=== PATIENT | female | born 1945 | race Caucasian/White ===

== ENCOUNTER 2016-08-01 14:13 | Outpatient (CLI) | payer MEDICARE ==
[~2016-08-01] VITALS: Ht 163.8 cm; Wt 137.4 kg
[2016-08-01 14:22] VITALS: BP 138/77
[2016-08-01 14:57] LABS: BILIRUBIN,URINE NEGATIVE (NEGATIVE); KETONES,URINE NEGATIVE (NEGATIVE); LEUKOCYTE ESTERASE ,URINE 1+ (NEGATIVE); NITRITE,URINE NEGATIVE (NEGATIVE); PH,URINE 5 (5-9); PROTEIN,URINE 1+ (NEGATIVE); UROBILINOGEN,URINE NORMAL (NORMAL)
[2016-08-01 15:04] LABS: BASOPHILS % (AUTO) 0 % (0-10); EOSINOPHILS # (AUTO) 0.4 10^3/uL (0.0-0.3); EOSINOPHILS % (AUTO) 4 % (0-10); LYMPHOCYTES # (AUTO) 1.8 X 10^3 (1.0-4.0); LYMPHOCYTES % (AUTO) 20 % (12-44); MEAN CORPUSCULAR HEMOGLOBIN 29 PG (25-34); MEAN CORPUSCULAR HGB CONC 33 G/DL (32-36); MEAN CORPUSCULAR VOLUME 87 FL (80-99); MEAN PLATELET VOLUME 9.9 FL (7.4-10.4); MONOCYTES # (AUTO) 0.7 X 10^3 (0.0-1.0); MONOCYTES % (AUTO) 8 % (0-12); NEUTROPHILS # (AUTO) 6.2 X 10^3 (1.8-7.8); NEUTROPHILS % (AUTO) 68 % (42-75); PLATELET COUNT 259 10^3/uL (130-400); RED BLOOD COUNT 4.79 10^6/uL (4.35-5.85); RED CELL DISTRIBUTION WIDTH 13.4 % (10.0-14.5)
[2016-08-01 15:06] LABS: WBC,URINE RARE /HPF
[2016-08-01 15:21] LABS: ALBUMIN 4.1 G/DL (3.2-4.5); BILIRUBIN,TOTAL 0.7 MG/DL (0.1-1.0); CALCIUM 9.8 MG/DL (8.5-10.1); CREATININE SERUM 1.34 MG/DL (0.60-1.30); POTASSIUM 4.2 MMOL/L (3.6-5.0); TOTAL PROTEIN 6.6 G/DL (6.4-8.2)
[2016-08-02] MEDS ORDERED: BUDE10.2 IH (10:08)
[2016-08-02] MEDS ORDERED: ACET-789 PO (10:08)
[2016-08-02] MEDS ORDERED: DOXE25CA46 PO (10:49)
[2016-08-02] MEDS ORDERED: LEVO137T2 PO (10:49)
[2016-08-02] MEDS ORDERED: HYDR25TA4 PO (10:49)
[2016-08-02] MEDS ORDERED: CYCL5TAB PO (10:49)
[2016-08-02] MEDS ORDERED: LISI10TA2 PO (10:49)
[2016-08-02] MEDS ORDERED: MELO15TA39 PO (10:49)
== END 2016-08-01 15:00 | disposition home or self-care (01) ==
LOC: PREOP 14:13
PROVIDERS: ATTEND Urology
DX: Z01.812 Encounter for preprocedural laboratory examination (principal); Z11.2 Encounter for screening for other bacterial diseases; N13.5 Crossing vessel and stricture of ureter without hydronephrosis
CPT/HCPCS: 36415; 80053; 81000; 85025; 87081

== ENCOUNTER → 2016-08-01 | Outpatient (CLI) | payer MEDICARE ==
[~2016-08-01] MED LIST: ACET-789 PO; BUDE10.2 IH; CATHETER FLUSH 10 ML SYR IV PRN; CYCL5TAB PO; DOXE25CA46 PO; HYDR25TA4 PO; IOHEXOL 350 MG/ML 100 ML (OMNIPAQUE 350) VIAL IV ONE; LEVO137T2 PO; LISI10TA2 PO; MELO15TA39 PO; NS 100 ML (IVPB) BAG IV ONE
--- NOTE | 2016-08-01 13:02 | Diagnostic Imaging Report ---
PROCEDURE: CT abdomen and pelvis with and without contrast. TECHNIQUE: Precontrast acquisitions were acquired through the abdomen and pelvis. Multiple contiguous axial images were obtained through the abdomen and pelvis after the administration of intravenous contrast. INDICATION: Left ureteric obstruction. Left-sided pain. CONTRAST: 100 mL of Omnipaque 350 was administered intravenously. FINDINGS: There is minimal atelectasis in the left lung base. The liver demonstrates slight lobulations in its contour with no focal mass. Consider the possibility of chronic liver disease. Correlate with the patient's history. The spleen is not enlarged. The portal vein is patent. The pancreas and adrenal glands appear unremarkable. The left kidney demonstrates a mass inseparable from the medial margin of the lower pole of the left kidney and inseparable from the renal collecting system resulting in obstruction of the pelviureteric junction and causing moderate hydronephrosis. The mass is 8 x 6.6 x 9.8 cm in size and demonstrates relatively homogeneous enhancement. The mass is centered in the left renal hilum and periaortic region and may have originated from a lymph node in this location representing a lymphoma. There is a discrete adjacent mildly enlarged left periaortic lymph node measuring 1.7 x 2.6 x 2.1 cm in size. There are also minimally enlarged aortocaval lymph nodes measuring up to 1.1 cm in size about the level of the kidneys. No other significant lymphadenopathy is seen. There is fatty stranding in the small bowel mesentery. The left renal artery and left renal vein appear patent despite displacement and encasement by the mass with enhancement of the renal parenchyma seen. There is less prominent enhancement, however, compared to the right kidney and no excretion is seen on the delayed phase of the current exam. The unenhanced exam demonstrates no urinary tract stones. The abdominal aorta is normal in caliber. No significant free fluid or fluid collection in the abdomen or pelvis is seen. Diastasis of the recti is noted. The urinary bladder appears unremarkable. There is suggestion of prior hysterectomy. There is a low-attenuation lesion in the pelvis measuring 2.7 x 2 cm, probably a remnant of the left ovary with no enhancement seen. There is diverticulosis but no diverticulitis. The osseous structures demonstrate advanced degenerative changes in the lumbar spine. IMPRESSION: 1. A 9.8 cm mass centered around the left renal hilum resulting in obstruction of the proximal ureter and moderate left hydronephrosis. This is favored to be an extrinsic mass such as lymphoma rather than transitional cell carcinoma arising from the renal collecting system. This is amenable for CT-guided biopsy. 2. Mildly enlarged left periaortic and aortocaval lymph nodes at the level of the kidneys are seen. 3. Diverticulosis. No diverticulitis. 4. There is a 2.7 cm low-attenuation lesion in the pelvis, likely a remnant of the left ovary. The findings were discussed with Dr. Mendez at the time of dictation. Dictated by: Dictated on workstation # [id number]
== END ==
LOC: RAD 10:50
PROVIDERS: ATTEND Urology
DX: N13.5 Crossing vessel and stricture of ureter without hydronephrosis (principal)
CPT/HCPCS: 74178

== ENCOUNTER 2016-08-08 06:15 | Day surgery (SDC) | payer MEDICARE ==
[2016-08-08] VITALS (13 sets, daily range): BP systolic 119–142; BP diastolic 61–79
[~2016-08-08] VITALS: Ht 163.8 cm; Wt 137.4 kg
[~2016-08-08 06:15] MED LIST changes: -CATHETER FLUSH 10 ML SYR IV PRN; -IOHEXOL 350 MG/ML 100 ML (OMNIPAQUE 350) VIAL IV ONE; -NS 100 ML (IVPB) BAG IV ONE
[2016-08-08] MEDS ORDERED: cefTRIAXone 1 GM (ROCEPHIN) VIAL ONE (06:30)
[2016-08-08] MEDS ORDERED: NS (IVPB) 50 ML ONE (06:30)
[2016-08-08] MEDS ORDERED: FAMOTIDINE 20MG/2ML IV (PEPCID) IV ONE (07:00)
--- NOTE | 2016-08-08 07:00 | Progress Note-Pre Operative ---
Pre-Operative Progress Note H&P Reviewed The H&P was reviewed, patient examined and no changes noted. Date H&P Reviewed: August 08, 2016 Time H&P Reviewed: 06:59 Pre-Operative Diagnosis: Lt perirenal mass with renal obstruction ERIN RODRIGUEZ MD August 08, 2016 7:00 am
--- NOTE | 2016-08-08 07:01 | Progress Note-Post Operative ---
Post-Operative Progess Note Surgeon (s)/After School Program Teacher (s) Surgeon ERIN RODRIGUEZ MD After School Program Teacher: N/A Pre-Operative Diagnosis Lt perirenal mass with renal obstruction Post-Operative Diagnosis SAME Procedure & Operative Findings Date of Procedure 08/08/16 Procedure Preformed/Findings LT RETROGRADE UROGRAM AND LT JJ STENT Anesthesia Type GENERAL Estimated Blood Loss Estimated blood loss (mL): N/A Specimens/Packing Specimens Removed N/A Packing: N/A ERIN RODRIGUEZ MD August 08, 2016 7:01 am
[2016-08-08] MEDS ORDERED: SEVOFLURANE (ULTANE) 15 ML INHAL SOLN ONE (07:03)
[2016-08-08] MEDS ORDERED: proPOfol 200 MG/20 ML (DIPRIVAN) VIAL IV ONE (07:03)
[2016-08-08] MEDS ORDERED: LACTATED RINGERS 1,000 ML IV ONE ×2 (07:03→07:51)
[2016-08-08] MEDS ORDERED: MIDAZOLAM 2 MG/2 ML (VERSED) VIAL ONE (07:03)
[2016-08-08] MEDS ORDERED: LIDOCAINE PF 2% 10 ML (XYLOCAINE) AMP ONE (07:03)
[2016-08-08] MEDS ORDERED: ROCURONIUM 50 MG/5 ML (ZEMURON) VIAL IV ONE (07:03)
[2016-08-08] MEDS ORDERED: DEXAMETHASONE PF 10 MG/ML (DECADRON) VIAL ONE (07:03)
[2016-08-08] MEDS ORDERED: ONDANSETRON 4 MG/2 ML (SDV) Z0FRAN ONE (07:03)
[2016-08-08] MEDS ORDERED: fentaNYL INJECTION 100 MCG/2 ML AMP ONE ×2 (07:03→13:15)
--- NOTE | 2016-08-08 07:03 | Discharge Inst-Urology ---
Discharge Inst-Urology Discharge Medications New, Converted, or Re-newed RX: RX on Chart Patient Instructions/Follow Up Plan Please make appointment to been seen in office in [address] Haq was notified of my consult for percutaneous needle biopsy of the perirenal mass and he will see her today around 10am and schedule the procedure either today or another day Keep her NPO for now Stay of ASA till further orders Increase oral fluids for 48 hours and then as needed. Diet and Activity as tolerated. Further orders per Dr Haq If questions or concerns contact your physician Or seek help at emergency department. ERIN RODRIGUEZ MD August 08, 2016 7:03 am
[2016-08-08] MEDS: LACTATED RINGERS 1,000 ML IV PRN ×2 (07:07→07:55)
[2016-08-08] MEDS ORDERED: cefTRIAXone 1 GM/NS 50 ML IVPB IV ONE ×2 (07:15)
[2016-08-08] MEDS ORDERED: GLYCOPYRROLATE 0.2 MG/ML (ROBINUL) 2 ML VIAL ONE (07:57)
[2016-08-08] MEDS ORDERED: NEOSTIGMINE (BLOXIVERZ ) 1 MG/1ML 10 ML VIAL ONE (07:57)
[2016-08-08] MEDS ORDERED: NEOSPORIN + PAIN RELIEF CREAM 15 GM ONE (07:59)
[2016-08-08] MEDS ORDERED: morphine INJ 10 MG/ML 1ML (SYR OR VIAL) IVP PRN (08:15)
[2016-08-08] MEDS ORDERED: ONDANSETRON 4 MG/2 ML (SDV) Z0FRAN IVP PRN (08:15)
[2016-08-08 09:28] LABS: PROTHROMBIN TIME PATIENT 12.8 SEC (12.2-14.7)
[2016-08-08] MEDS ORDERED: morphine INJ 10 MG/ML 1ML (SYR OR VIAL) IVP ONE ×2 (09:30→09:45)
[2016-08-08] MEDS ORDERED: PHENAZOPYRIDINE 100 MG (PYRIDIUM) TABLET PO NR (10:00)
--- NOTE | 2016-08-08 10:07 | Diagnostic Imaging Report ---
Intraoperative views of the abdomen. INDICATION: Left ureteric obstruction. 20 seconds of fluoroscopy time is provided and 8 cc of Omnipaque 300 was utilized. IMPRESSION: Provided images demonstrate moderate hydronephrosis on the left side with nondilated ureter suggestive of obstruction at the UPJ level. Dictated by: Dictated on workstation # [id number]
[2016-08-08] MEDS ORDERED: LIDOCAINE 1% INJ 20 ML (XYLOCAINE) VIAL ONE (12:38)
[2016-08-08] MEDS ORDERED: HYDROcodone/APAP 5 MG/325 MG (LORTAB) TAB ONE ×2 (14:13→15:29)
[2016-08-08] MEDS: HYDROcodone/APAP 5 MG/325 MG (LORTAB) TAB PO PRN ×2 (14:18→15:30)
[2016-08-08] MEDS ORDERED: LIDOCAINE 1% INJ 20 ML (XYLOCAINE) VIAL INJ ONE (14:30)
--- NOTE | 2016-08-08 14:37 | Pre-Procedure Progress Note ---
Pre-Procedure Progress Note H&P Reviewed The H&P was reviewed, patient examined and no changes noted. Date H&P Reviewed: August 08, 2016 Time H&P Reviewed: 12:00 Pre-Procedure Diagnosis: abdominal mass SHELDON VALENTINO MD August 08, 2016 14:37
--- NOTE | 2016-08-08 16:22 | Diagnostic Imaging Report ---
EXAMINATION: CT-guided biopsy-left perinephric retroperitoneal mass. INDICATION: left perinephric retroperitoneal mass. Current history and physical and other medical records are reviewed prior to the procedure. CONSENT: Informed consent was obtained from the patient. The risks, benefits, potential complications and alternatives were reviewed and all questions answered to the patient's satisfaction. The patient's vital signs, cardiac rhythm, and pulse oximetry were observed throughout the procedure by qualified nursing personnel. Sedation/medications: none. FINDINGS: Large retroperitoneal left perinephric mass. The ureteric stent is placed PROCEDURE: After maximal sterile barrier technique preparation and draping, 1% lidocaine was utilized for local anesthesia. With the patient in right side down position, and via posterior approach, a 17-gauge guide needle is introduced into the left-sided retroperitoneal mass under CT scan guidance. After confirming adequate positioning with saved CT images, multiple 18 gauge core biopsy specimens were obtained. The patient tolerated the procedure well with no immediate complications. IMPRESSION: Successful CT-guided biopsy of left perinephric retroperitoneal mass. Dictated by: Dictated on workstation # [id number]
--- NOTE | 2016-08-09 04:17 | OPERATIVE REPORT ---
DATE OF SERVICE: 08/08/2016 PREOPERATIVE DIAGNOSIS: Left renal obstruction with perirenal mass. POSTOPERATIVE DIAGNOSIS: Left renal obstruction with perirenal mass. OPERATIONS PERFORMED: Cystoscopy, left retrograde urogram and insertion of left double J-stent. SURGEON: Severo Rodriguez MD ANESTHESIA: General. COMPLICATIONS: None. DESCRIPTION OF PROCEDURE: Under satisfactory general anesthesia, the patient in lithotomy position, genitalia were prepped and draped in the usual sterile fashion. Noted a cystocele and poor hygiene of the vaginal area. Cystoscope was introduced under direct vision. The bladder was normal. There was efflux on both sides, most likely from the left side, but not bloody. Using the foroblique lens, I passed a 6-[place] ureteral catheter to the distal ureter. I injected contrast. The ureter was completely normal. There was dilatation of the renal pelvis at the UPJ. There was no filling defect at all. There was poor emptying of the renal pelvis contrast. I took a 6-[place] Citizen 26-cm double J-sent, passed it all the way to the left renal pelvis; however, it was not long enough for the patient because of the cystocele and the kidney being high kidney, so I exchanged it to a 28 cm with no problem. The stent was seen nicely proximally, fluoroscopically and distally endoscopically. The bladder was evacuated and the cystoscope was removed. The patient tolerated the procedure and anesthesia well and was sent to the recovery room in stable condition. PLAN: I have explained to the patient and her at the office and again this morning. I would consult Dr. Haq to obtain CT-guided biopsies of that perirenal mass to know the pathology of it. We will see her once she is fully awake and talk to her about it, either do it today or another day. Job ID: [id number] DocumentID: [id number] Dictated Date: 08/08/2016 08:20:19 Nailing Machine Operator Date: 08/08/2016 18:06:08 Dictated By: SEVERO RODRIGUEZ MD
== END 2016-08-08 17:05 | disposition home or self-care (01) ==
LOC: SDC 06:15
PROVIDERS: ATTEND Urology
DX: N28.89 Other specified disorders of kidney and ureter (principal); N81.10 Cystocele, unspecified; I10 Essential (primary) hypertension; E03.9 Hypothyroidism, unspecified; J45.909 Unspecified asthma, uncomplicated; Z79.899 Other long term (current) drug therapy
CPT/HCPCS: 36415; 77012; 85610; 85730

== ENCOUNTER → 2016-08-22 | Outpatient (CLI) | payer MEDICARE ==
--- NOTE | 2016-08-22 15:29 | Diagnostic Imaging Report ---
EXAMINATION: PET-CT TECHNIQUE: Serum glucose level at the time of the study is: 108 mg/dL. 13.6 mCi of FDG was administered intravenously followed by obtaining PET images with corresponding noncontrast CT scan images. The CT scan was performed for anatomic correlation and attenuation correction and was not performed according to the diagnostic protocol of the areas covered. The scan was performed from the head to mid thighs. INDICATION: Diffuse large cell lymphoma. FINDINGS: There is symmetric FDG uptake seen in the brain. There is intense hypermetabolism seen in the left posterior neck muscles which demonstrate no convincing asymmetry, allowing for some positional tilt which is probably positional. Similar activity is seen also in upper left intercostal muscles and muscles around the left scapula and both triceps muscles likely physiologic or related to muscle spasm. No hypermetabolic lymph node in the neck is seen. No hypermetabolic mass or enlarged lymph nodes in the chest is identified. No hypermetabolic lung mass. IN THE ABDOMEN AND PELVIS: There is an intensely hypermetabolic biopsy-proven lymphoma mass in the retroperitoneum centered in the left perinephric space between the abdominal aorta and to the left kidney with invasion into the renal pelvis and the renal collecting system and the renal parenchyma as well as the left psoas muscle. The abnormal hypermetabolism extends along the left psoas muscle inferiorly to the upper pelvis. There is muscle activity bilaterally in a somewhat symmetric fashion and the gluteal muscles probably physiologic or related to muscle spasm. The mass mentioned above is inseparable from the left periaortic lymph node station with no areas of activity noted. The intensely hypermetabolic mass has maximum SUV value of 40. The spleen demonstrates no increased hypermetabolism. IMPRESSION: 1. Intensely hypermetabolic large left retroperitoneal mass inseparable from the left kidney, the left psoas muscle and the left para-aortic lymph node station compatible with biopsy-proven lymphoma. No definite other areas of involvement seen. 2. Multifocal muscle activity is probably physiologic secondary to muscle movements or contractions. Dictated by: Dictated on workstation # [id number]
== END ==
LOC: RAD 10:37
PROVIDERS: ATTEND Internal Medicine Hematology & Oncology
DX: C83.38 Diffuse large B-cell lymphoma, lymph nodes of multiple sites (principal)
CPT/HCPCS: 99213

== ENCOUNTER 2016-08-24 11:30 | Day surgery (SDC) | payer MEDICARE ==
[~2016-08-24] VITALS: Ht 165.1 cm; Wt 136.1 kg
--- NOTE | 2016-08-24 11:53 | Progress Note-Pre Operative ---
Pre-Operative Progress Note H&P Reviewed The H&P was reviewed, patient examined and no changes noted. Date H&P Reviewed: Aug 24, 2016 Time H&P Reviewed: 11:51 Pre-Operative Diagnosis: diffuse large cell non-hodgkins lymphoma JONATAN ADAMS DO Aug 24, 2016 11:53 am
[2016-08-24] MEDS ORDERED: ceFAZolin 2 GM/NS 50 ML IV ONE (12:00)
[2016-08-24] MEDS ORDERED: LACTATED RINGERS 1,000 ML IV PRN (12:09)
[2016-08-24] MEDS ORDERED: ONDANSETRON 4 MG/2 ML (SDV) Z0FRAN IV ONE (12:15)
[2016-08-24] MEDS ORDERED: FAMOTIDINE 20MG/2ML IV (PEPCID) IV ONE (12:15)
[2016-08-24] MEDS ORDERED: LACTATED RINGERS 1,000 ML IV ONE (12:21)
[2016-08-24] MEDS ORDERED: proPOfol 200 MG/20 ML (DIPRIVAN) VIAL IV ONE ×2 (12:21→13:31)
[2016-08-24] MEDS ORDERED: MIDAZOLAM 2 MG/2 ML (VERSED) VIAL ONE (12:23)
--- NOTE | 2016-08-24 12:25 | Discharge Inst-Simple/Standard ---
Discharge Inst-Standard Patient Instructions/Follow Up Plan of Care/Instructions/FU: See Dr. Rosario in 2 weeks. Apply ice over site for 10 mins on and 10 mins off for the next 24-48 hours. Activity as Tolerated: No Discharge Diet: No Restrictions Other Inst to Patient Follow up Appt: Make appointment for 2 weeks. Instructions: No lifting greater than 10 pounds. No strenuous activity. May shower in 24 hours, no tub bath or soaking. Use incentive spirometer at home as directed. No Smoking Skin/Wound Care: May remove bandages. You need to leave the white strips over incision on they will fall off on their own. Symptoms to Report: Appetite Changes, Extremity Discoloration, Numbness/Tingling, Swelling Increased , Bleeding Excessive, Eyesight Changes, Pain Increased, Urine Color Change, Constipation(Persistent), Fever over 101 degree F, Pain/Pressure in chest, Urinating Difficulty, Cough Up/Vomit Blood, Heart Beat Irreg/Pounding, Pain/ Pressure in jaw, Vaginal Bleeding Increase, Cramps in feet or legs, Lightheadedness, Pain/Pressure in shoulder, Diarrhea(Persistent), Memory Changes Suddenly, Questions/Concerns, Weight gain consecutive days, Dizziness/ Fainting, Nausea/Vomiting, Shortness of Breath, Weight gain over 2 pounds If questions or concerns contact your physician Or seek help at emergency department. DANIEL REDD APRN Aug 24, 2016 12:25
[2016-08-24] MEDS ORDERED: BUPIVACAINE 0.5% 30 ML (SENSORCAINE) VIAL ONE (12:31)
[2016-08-24] MEDS ORDERED: LIDOCAINE 1% INJ 20 ML (XYLOCAINE) VIAL ONE (12:31)
[2016-08-24] MEDS ORDERED: 0.9% SODIUM CHLORIDE PF INJ 20 ML VIAL ONE (12:31)
[2016-08-24] MEDS ORDERED: HEParin (CENTRAL IV FLUSH) 500 UNIT/5 ML SYR ONE (12:31)
[2016-08-24 12:37] VITALS: BP 115/69
[2016-08-24] MEDS ORDERED: ONDANSETRON 4 MG/2 ML (SDV) Z0FRAN IVP PRN (14:00)
[2016-08-24] MEDS ORDERED: morphine INJ 10 MG/ML 1ML (SYR OR VIAL) IVP PRN (14:00)
--- NOTE | 2016-08-24 14:05 | Diagnostic Imaging Report ---
Portable upright radiograph of the chest. INDICATION: Power port placement. FINDINGS: There is a right IJ port placed with the tip at the SVC level. There is no pneumothorax. Minimal atelectasis in the left lung base is seen. The heart size is normal. No effusion seen. IMPRESSION: Right IJ port is placed. Left basilar minimal atelectasis. Dictated by: Dictated on workstation # [id number]
[2016-08-24 14:10] VITALS: BP 115/82
--- NOTE | 2016-08-24 14:15 | Progress Note-Post Operative ---
Post-Operative Progess Note Surgeon (s)/Trekking Guide (s) Surgeon JONATAN ADAMS DO Trekking Guide: na Pre-Operative Diagnosis diffuse large cell non-hodgkins lymphoma Post-Operative Diagnosis same Procedure & Operative Findings Date of Procedure 08/24/16 Procedure Performed/Findings port placement right IJ using u/s guidance Anesthesia Type mac c local Estimated Blood Loss Estimated blood loss (mL): min Specimens/Packing Specimens Removed na JONATAN ADAMS DO Aug 24, 2016 14:15
[2016-08-24 14:40] VITALS: BP 101/60
[2016-08-24] MEDS ORDERED: APAP 300 MG/CODEINE 30 MG (TYLENOL #3) TAB PO ONE (14:45)
[2016-08-24 15:10] VITALS: BP 110/67
[2016-08-24 15:30] VITALS: BP 110/67
--- NOTE | 2016-08-24 19:41 | Diagnostic Imaging Report ---
EXAMINATION: Intraoperative view of the chest. INDICATION: Port placement by Dr. Rosario. FLUOROSCOPY TIME: 37 seconds. IMPRESSION: Image provided demonstrates port with tip at the SVC level. Dictated by: Dictated on workstation # [id number]
--- NOTE | 2016-08-25 08:01 | OPERATIVE REPORT ---
DATE OF SERVICE: 08/24/2016 PREOPERATIVE DIAGNOSIS: Diffuse large cell non-Hodgkin's lymphoma. POSTOPERATIVE DIAGNOSIS: Diffuse large cell non-Hodgkin's lymphoma. PROCEDURE: Port placement, right internal jugular vein using ultrasound guidance. SURGEON: Jonatan Rosario DO ANESTHESIA: MAC with local. ESTIMATED BLOOD LOSS: Minimal. COMPLICATIONS: None. INDICATIONS: The patient is a 70-year-old female with a diffuse large cell non-Hodgkin's lymphoma. The patient to undergo chemotherapy treatment. She was recommended to have port placement. She understands risks and benefits of procedure and wished to proceed with procedure. Consent was signed in the chart. DESCRIPTION OF PROCEDURE: The patient was taken to the operating suite, she was prepped and draped in sterile fashion. Surgical pause was performed. Local anesthetic of 0.5% Marcaine and 1% lidocaine in 50:50 ratio was used to anesthetize the neck. The ultrasound was used to locate the internal jugular vein and was then accessed using a micro access needle. Dark nonpulsatile blood was withdrawn. The syringe was removed and a micro access wire was inserted. Fluoroscopy assured proper placement. The needle was removed. Over the wire, the dilator sheath was then advanced over the wire and the wire was removed. The normal guidewire for the port was then placed through the sheath, and then, fluoroscopy showed proper placement and the wire was secured. Local anesthetic was infiltrated on the right chest and a tracked up to the neck of the insertion point. A 15 blade scalpel was used to make an incision over the chest. Cautery was used to dissect down to the pectoral fascia. Pocket was then created with blunt dissection. At this point, the dilator sheath was then advanced over the wire under fluoroscopy. The wire and dilator were removed. The [place] catheter was inserted through the sheath and then the sheath was removed. The [place] wire was removed, and the catheter was tunneled to the right chest incision. Fluoroscopy was then used to withdraw the catheter to the proper length. At this point, the catheter was then cut to length, attached to the port and secured in the usual fashion. The port was then placed within the pocket and then the port was then accessed without difficulty and then flushed with saline. It was then flushed with heparin. The subcutaneous tissues were then reapproximated using 3-0 Vicryl. Skin was then closed using 4-0 Vicryl. The skin also was then washed and dried. Dermabond was placed over the incisions at the insertion point. Fluoroscopy assured proper placement and nice smooth contour of the catheter. The patient tolerated procedure well without any complications. She was taken to recovery room in stable condition. Chest x-ray pending. Job ID: [id number] DocumentID: [id number] Dictated Date: 08/24/2016 14:24:40 Terrazzo Layer Date: 08/24/2016 20:45:08 Dictated By: JONATAN ROSARIO DO
== END 2016-08-24 15:30 | disposition home or self-care (01) ==
LOC: SDC 11:30
PROVIDERS: ATTEND Surgery
DX: C83.30 Diffuse large B-cell lymphoma, unspecified site (principal); J45.909 Unspecified asthma, uncomplicated; E07.9 Disorder of thyroid, unspecified; E66.01 Morbid (severe) obesity due to excess calories; Z68.42 Body mass index [BMI] 45.0-49.9, adult; Z79.899 Other long term (current) drug therapy
CPT/HCPCS: 71010; 87081

== ENCOUNTER → 2016-08-24 | Outpatient (CLI) | payer MEDICARE ==
--- NOTE | 2016-08-25 19:38 | ECHOCARDIOGRAPHY REPORT ---
DATE OF SERVICE: 08/24/2016 ECHOCARDIOGRAPHY ORDERING PHYSICIAN: Dr. Hopson. PRIMARY PHYSICIAN: Dr. Mcdonald. CLINICAL DIAGNOSIS: B cell lymphoma. MEASUREMENTS: LV diameter diastolic 5.3. IVS thickness, diastolic 1.2. LVPW thickness, diastolic 0.9. Aortic root 3. Left atrium 3.5. DESCRIPTION: This is a technically difficult study and not ideal for wall motion analysis. Global left ventricular systolic function appears well preserved. Left ventricular ejection fraction is approximately 55% to 60%. Aortic, mitral and tricuspid valve leaflets, to the extent visualized, seem to have good leaflet excursion. There appears to be some epicardial fat versus small amount of pericardial fluid, which does not appear to be of hemodynamic significance. Mitral inflow is consistent with grade I diastolic dysfunction of the left ventricle. There is no Doppler evidence of any significant valvular stenosis. There is no evidence of significant mitral regurgitation. Subcostal views are not available. The study is not suitable for evaluation for intracardiac shunt. CONCLUSIONS: 1. Technically difficult study. 2. Normal global left ventricular systolic function with ejection fraction of 55% to 60%. 3. This study does not indicate evidence of significant valvular regurgitation or stenosis. 4. Mild diastolic dysfunction of left ventricle is suggested on this study. Job ID: [id number] DocumentID: [id number] Dictated Date: 08/25/2016 14:00:18 Maintenance Coordinator Date: 08/25/2016 15:17:49 Dictated By: TREVOR ZHAO MD, MA, FACP, FACC,
== END ==
LOC: CARD 10:30
PROVIDERS: ATTEND Internal Medicine Hematology & Oncology
DX: Z01.810 Encounter for preprocedural cardiovascular examination (principal); C83.30 Diffuse large B-cell lymphoma, unspecified site
CPT/HCPCS: 93306

== ENCOUNTER 2016-11-09 09:18 | Outpatient (RCR) | payer MEDICARE ==
[2016-08-22 09:24] LABS: BASOPHILS % (AUTO) 0 % (0-10); EOSINOPHILS # (AUTO) 0.5 10^3/uL (0.0-0.3); EOSINOPHILS % (AUTO) 6 % (0-10); LYMPHOCYTES # (AUTO) 1.5 X 10^3 (1.0-4.0); LYMPHOCYTES % (AUTO) 17 % (12-44); MEAN CORPUSCULAR HEMOGLOBIN 30 PG (25-34); MEAN CORPUSCULAR HGB CONC 33 G/DL (32-36); MEAN CORPUSCULAR VOLUME 89 FL (80-99); MEAN PLATELET VOLUME 9.2 FL (7.4-10.4); MONOCYTES # (AUTO) 0.8 X 10^3 (0.0-1.0); MONOCYTES % (AUTO) 9 % (0-12); NEUTROPHILS # (AUTO) 5.9 X 10^3 (1.8-7.8); NEUTROPHILS % (AUTO) 68 % (42-75); PLATELET COUNT 269 10^3/uL (130-400); RED BLOOD COUNT 4.63 10^6/uL (4.35-5.85); RED CELL DISTRIBUTION WIDTH 13.7 % (10.0-14.5); WHITE BLOOD COUNT 8.7 10^3/uL (4.3-11.0)
[2016-08-22 09:59] LABS: ALBUMIN 3.9 G/DL (3.2-4.5); CALCIUM 10.6 MG/DL (8.5-10.1); CREATININE SERUM 1.21 MG/DL (0.60-1.30); POTASSIUM 4.4 MMOL/L (3.6-5.0); TOTAL PROTEIN 6.5 G/DL (6.4-8.2)
[2016-08-22 11:10] LABS: URIC ACID 9.7 MG/DL (2.6-7.2)
[2016-08-28 09:03] LABS: BASOPHILS % (AUTO) 1 % (0-10); EOSINOPHILS # (AUTO) 0.6 10^3/uL (0.0-0.3); EOSINOPHILS % (AUTO) 7 % (0-10); LYMPHOCYTES # (AUTO) 1.5 X 10^3 (1.0-4.0); LYMPHOCYTES % (AUTO) 20 % (12-44); MEAN CORPUSCULAR HEMOGLOBIN 30 PG (25-34); MEAN CORPUSCULAR HGB CONC 33 G/DL (32-36); MEAN CORPUSCULAR VOLUME 90 FL (80-99); MEAN PLATELET VOLUME 9.4 FL (7.4-10.4); MONOCYTES # (AUTO) 0.7 X 10^3 (0.0-1.0); MONOCYTES % (AUTO) 9 % (0-12); NEUTROPHILS # (AUTO) 4.8 X 10^3 (1.8-7.8); NEUTROPHILS % (AUTO) 63 % (42-75); PLATELET COUNT 230 10^3/uL (130-400); WHITE BLOOD COUNT 7.5 10^3/uL (4.3-11.0)
[2016-08-28 09:40] LABS: CREATININE SERUM 1.11 MG/DL (0.60-1.30); POTASSIUM 4.3 MMOL/L (3.6-5.0); URIC ACID 5.1 MG/DL (2.6-7.2)
[2016-09-27 09:36] LABS: BASOPHILS # (AUTO) 0.1 10^3/uL (0.0-0.1); BASOPHILS % (AUTO) 1 % (0-10); EOSINOPHILS # (AUTO) 0.2 10^3/uL (0.0-0.3); EOSINOPHILS % (AUTO) 3 % (0-10); LYMPHOCYTES # (AUTO) 1.9 X 10^3 (1.0-4.0); LYMPHOCYTES % (AUTO) 28 % (12-44); MEAN CORPUSCULAR HEMOGLOBIN 31 PG (25-34); MEAN CORPUSCULAR HGB CONC 32 G/DL (32-36); MEAN CORPUSCULAR VOLUME 99 FL (80-99); MEAN PLATELET VOLUME 8.9 FL (7.4-10.4); MONOCYTES # (AUTO) 0.9 X 10^3 (0.0-1.0); MONOCYTES % (AUTO) 13 % (0-12); NEUTROPHILS # (AUTO) 3.9 X 10^3 (1.8-7.8); NEUTROPHILS % (AUTO) 55 % (42-75); PLATELET COUNT 378 10^3/uL (130-400); RED BLOOD COUNT 3.47 10^6/uL (4.35-5.85); RED CELL DISTRIBUTION WIDTH 18.9 % (10.0-14.5)
[2016-09-27 10:03] LABS: ALBUMIN 3.9 GM/DL (3.2-4.5); BILIRUBIN,TOTAL 1.1 MG/DL (0.1-1.0); CALCIUM 9.6 MG/DL (8.5-10.1); CREATININE SERUM 1.23 MG/DL (0.60-1.30); MAGNESIUM 1.6 MG/DL (1.8-2.4); POTASSIUM 4.1 MMOL/L (3.6-5.0); TOTAL PROTEIN 6.4 GM/DL (6.4-8.2); URIC ACID 7.9 MG/DL (2.6-7.2)
[2016-10-12 08:42] LABS: BASOPHILS # (AUTO) 0.1 10^3/uL (0.0-0.1); BASOPHILS % (AUTO) 1 % (0-10); EOSINOPHILS # (AUTO) 0.5 10^3/uL (0.0-0.3); EOSINOPHILS % (AUTO) 6 % (0-10); LYMPHOCYTES % (AUTO) 22 % (12-44); MEAN CORPUSCULAR HEMOGLOBIN 32 PG (25-34); MEAN CORPUSCULAR HGB CONC 32 G/DL (32-36); MEAN CORPUSCULAR VOLUME 97 FL (80-99); MEAN PLATELET VOLUME 8.9 FL (7.4-10.4); MONOCYTES % (AUTO) 11 % (0-12); NEUTROPHILS # (AUTO) 5.5 X 10^3 (1.8-7.8); NEUTROPHILS % (AUTO) 60 % (42-75); PLATELET COUNT 252 10^3/uL (130-400); RED BLOOD COUNT 3.65 10^6/uL (4.35-5.85); RED CELL DISTRIBUTION WIDTH 15.1 % (10.0-14.5)
[2016-10-12 09:05] LABS: CALCIUM 8.7 MG/DL (8.5-10.1); CREATININE SERUM 1.06 MG/DL (0.60-1.30); MAGNESIUM 1.2 MG/DL (1.8-2.4); POTASSIUM 3.6 MMOL/L (3.6-5.0); URIC ACID 7.5 MG/DL (2.6-7.2)
[~2016-11-09] VITALS: Ht 160 cm; Wt 132.0 kg
[~2016-11-09 09:18] MED LIST changes: +ACETAMINOPHEN 500 MG TAB (TYLENOL) CANCER CTR PO PRN; +CYCLOPHOSPHAMIDE INJECTION 800 MG in NS (IVPB) CANCER CENTER 250 ML IV SCH; +DOXORUBICIN HCL IV SCH; +FOSAPREPITANT 150 MG/NS 150 MG IVPB (CANCER CTR) IV PRN; +NS IV 1000 ML (CANCER CTR) IV SCH; +NS IV SCH; +PALONOSETRON 0.25 MG, DEXAMETHASONE 10 MG/NS 50 ML IVPB IV PRN; +PEGFILGRASTIM 6 MG/0.6 ML ONPRO KIT SQ SCH; +PEGFILGRASTIM 6 MG/0.6ML NEULASTA SC SCH; +diphenhydrAMINE 50 MG/ML INJ (CANCER CENTER) IV PRN; +riTUXimab 500 MG, riTUXimab FOR IV INJ CONC 300 MG in NS (IVPB) CANCER CENTER 186 ML IV SCH; +vinCRIStine SULFATE 1 MG in NS (IVPB) CANCER CENTER 50 ML IV SCH
[2016-11-09 09:49] LABS: BASOPHILS # (AUTO) 0.1 10^3/uL (0.0-0.1); BASOPHILS % (AUTO) 1 % (0-10); EOSINOPHILS # (AUTO) 0.2 10^3/uL (0.0-0.3); EOSINOPHILS % (AUTO) 3 % (0-10); LYMPHOCYTES % (AUTO) 44 % (12-44); MEAN CORPUSCULAR HEMOGLOBIN 31 PG (25-34); MEAN CORPUSCULAR HGB CONC 32 G/DL (32-36); MEAN CORPUSCULAR VOLUME 98 FL (80-99); MEAN PLATELET VOLUME 8.7 FL (7.4-10.4); MONOCYTES # (AUTO) 0.9 X 10^3 (0.0-1.0); MONOCYTES % (AUTO) 13 % (0-12); NEUTROPHILS # (AUTO) 2.8 X 10^3 (1.8-7.8); NEUTROPHILS % (AUTO) 41 % (42-75); PLATELET COUNT 300 10^3/uL (130-400); RED BLOOD COUNT 3.72 10^6/uL (4.35-5.85); RED CELL DISTRIBUTION WIDTH 14.8 % (10.0-14.5); WHITE BLOOD COUNT 6.9 10^3/uL (4.3-11.0)
[2016-11-09 10:18] LABS: ALBUMIN 3.8 GM/DL (3.2-4.5); BILIRUBIN,TOTAL 0.7 MG/DL (0.1-1.0); CALCIUM 9.3 MG/DL (8.5-10.1); CREATININE SERUM 1.12 MG/DL (0.60-1.30); MAGNESIUM 1.6 MG/DL (1.8-2.4); POTASSIUM 4.2 MMOL/L (3.6-5.0); TOTAL PROTEIN 6.2 GM/DL (6.4-8.2); URIC ACID 8.6 MG/DL (2.6-7.2)
[2016-11-09] MEDS ORDERED: diphenhydrAMINE 25 MG TAB (BENADRYL) CANCER CENTER PO ONE (10:55)
== END 2016-11-16 | disposition home or self-care (01) ==
LOC: ONC 09:18
PROVIDERS: ATTEND Internal Medicine Hematology & Oncology
DX: Z51.11 Encounter for antineoplastic chemotherapy (principal); C83.33 Diffuse large B-cell lymphoma, intra-abdominal lymph nodes; I12.9 Hypertensive chronic kidney disease with stage 1 through stage 4 chronic kidney disease, or unspecified chronic kidney disease; N18.3 Chronic kidney disease, stage 3 (moderate); E03.9 Hypothyroidism, unspecified; J45.909 Unspecified asthma, uncomplicated; E79.0 Hyperuricemia without signs of inflammatory arthritis and tophaceous disease; E83.52 Hypercalcemia; R10.84 Generalized abdominal pain; E66.01 Morbid (severe) obesity due to excess calories; Z68.43 Body mass index [BMI] 50.0-59.9, adult; Z79.899 Other long term (current) drug therapy
CPT/HCPCS: 36415; 36591; 80048; 80053; 80074; 83615; 83735; 84550; 85025; 96367; 96372; 96375; 96411; 96413; 96415; 96417; 99214

== ENCOUNTER → 2016-11-20 | Outpatient (CLI) | payer MEDICARE ==
[~2016-11-20] MED LIST changes: -ACETAMINOPHEN 500 MG TAB (TYLENOL) CANCER CTR PO PRN; +BARIUM SUSPENSION 2.1% (VANILLA SILQ) 450 ML PO ONE; +CATHETER FLUSH 10 ML SYR IV PRN; -CYCLOPHOSPHAMIDE INJECTION 800 MG in NS (IVPB) CANCER CENTER 250 ML IV SCH; -DOXORUBICIN HCL IV SCH; -FOSAPREPITANT 150 MG/NS 150 MG IVPB (CANCER CTR) IV PRN; +IOHEXOL 350 MG/ML 100 ML (OMNIPAQUE 350) VIAL IV ONE; +NS 100 ML (IVPB) BAG IV ONE; -NS IV 1000 ML (CANCER CTR) IV SCH; -NS IV SCH; -PALONOSETRON 0.25 MG, DEXAMETHASONE 10 MG/NS 50 ML IVPB IV PRN; -PEGFILGRASTIM 6 MG/0.6 ML ONPRO KIT SQ SCH; -PEGFILGRASTIM 6 MG/0.6ML NEULASTA SC SCH; -diphenhydrAMINE 50 MG/ML INJ (CANCER CENTER) IV PRN; -riTUXimab 500 MG, riTUXimab FOR IV INJ CONC 300 MG in NS (IVPB) CANCER CENTER 186 ML IV SCH; -vinCRIStine SULFATE 1 MG in NS (IVPB) CANCER CENTER 50 ML IV SCH
--- NOTE | 2016-11-20 14:37 | Diagnostic Imaging Report ---
PROCEDURE: CT chest with contrast, CT abdomen and pelvis with and without contrast. TECHNIQUE: Pre and post intravenous contrast axial imaging of the abdomen and pelvis and post contrast axial imaging of the chest were performed. INDICATION: Diffuse large B-cell lymphoma. COMPARISON: Comparison made with prior examination from 08/01/2016. FINDINGS: There are no discrete pulmonary nodules, masses, or infiltrates. There is no pleural or pericardial fluid. There is no pneumothorax. There is no pathologically enlarged adenopathy in the chest. There are degenerative changes in the spine. The liver is normal in size without focal lesions. Spleen is unremarkable. The pancreas and adrenal glands are unremarkable. The right kidney is normal. There is an ill-defined soft tissue mass again seen in the hilum of the left kidney. On today's exam, this measures 5.3 x 4.4 cm. This compares with a previous measurement of 8 x 6.5 cm. There are a few subcentimeter left para-aortic lymph nodes. The soft tissue thickening about the left renal hilum extends down to the left ureter. The aorta is non-aneurysmal. The bowel gas pattern is nonspecific. There is no free air. There is some mild diverticular disease. There is no pelvic mass or adenopathy. There are degenerative changes in the spine. IMPRESSION: Interval decrease in size of the mass about the left renal hilum. Additionally, the previously described para-aortic adenopathy is now all less than a centimeter. Diverticular disease without evidence of diverticulitis. Degenerative changes in the spine. Dictated by: Dictated on workstation # [id number]
== END ==
LOC: RAD 09:19
PROVIDERS: ATTEND Nurse Practitioner Adult Health
DX: K57.30 Diverticulosis of large intestine without perforation or abscess without bleeding (principal); M47.819 Spondylosis without myelopathy or radiculopathy, site unspecified; C83.33 Diffuse large B-cell lymphoma, intra-abdominal lymph nodes
CPT/HCPCS: 71260; 74178

== ENCOUNTER 2016-12-07 08:43 | Outpatient (RCR) | payer MEDICARE ==
[~2016-12-07] VITALS: Ht 160 cm; Wt 135.2 kg
[~2016-12-07 08:43] MED LIST changes: +ACETAMINOPHEN 500 MG TAB (TYLENOL) CANCER CTR PO PRN; -BARIUM SUSPENSION 2.1% (VANILLA SILQ) 450 ML PO ONE; -CATHETER FLUSH 10 ML SYR IV PRN; +CYCLOPHOSPHAMIDE INJECTION 800 MG in NS (IVPB) CANCER CENTER 250 ML IV SCH; +DOXORUBICIN HCL IV SCH; +FOSAPREPITANT 150 MG/NS 150 MG IVPB (CANCER CTR) IV PRN; -IOHEXOL 350 MG/ML 100 ML (OMNIPAQUE 350) VIAL IV ONE; -NS 100 ML (IVPB) BAG IV ONE; +NS IV 1000 ML (CANCER CTR) 1,000 ML ONE; +NS IV 1000 ML (CANCER CTR) IV SCH; +NS IV SCH; +PALONOSETRON 0.25 MG, DEXAMETHASONE 10 MG/NS 50 ML IVPB IV PRN; +PEGFILGRASTIM 6 MG/0.6 ML ONPRO KIT SQ SCH; +diphenhydrAMINE 50 MG/ML INJ (CANCER CENTER) IV PRN; +riTUXimab 500 MG, riTUXimab FOR IV INJ CONC 300 MG in NS (IVPB) CANCER CENTER 186 ML IV SCH; +vinCRIStine SULFATE 1 MG in NS (IVPB) CANCER CENTER 50 ML IV SCH
[2016-12-07 09:57] LABS: BASOPHILS # (AUTO) 0.1 10^3/uL (0.0-0.1); BASOPHILS % (AUTO) 1 % (0-10); EOSINOPHILS # (AUTO) 0.3 10^3/uL (0.0-0.3); EOSINOPHILS % (AUTO) 4 % (0-10); LYMPHOCYTES # (AUTO) 1.8 X 10^3 (1.0-4.0); LYMPHOCYTES % (AUTO) 26 % (12-44); MEAN CORPUSCULAR HEMOGLOBIN 31 PG (25-34); MEAN CORPUSCULAR HGB CONC 33 G/DL (32-36); MEAN CORPUSCULAR VOLUME 94 FL (80-99); MEAN PLATELET VOLUME 8.9 FL (7.4-10.4); MONOCYTES # (AUTO) 0.9 X 10^3 (0.0-1.0); MONOCYTES % (AUTO) 12 % (0-12); NEUTROPHILS % (AUTO) 57 % (42-75); PLATELET COUNT 336 10^3/uL (130-400); RED BLOOD COUNT 3.92 10^6/uL (4.35-5.85); RED CELL DISTRIBUTION WIDTH 14.7 % (10.0-14.5); WHITE BLOOD COUNT 7.1 10^3/uL (4.3-11.0)
[2016-12-07 10:17] LABS: BILIRUBIN,TOTAL 0.7 MG/DL (0.1-1.0); CALCIUM 9.4 MG/DL (8.5-10.1); CREATININE SERUM 1.11 MG/DL (0.60-1.30); MAGNESIUM 1.6 MG/DL (1.8-2.4); TOTAL PROTEIN 6.4 GM/DL (6.4-8.2); URIC ACID 9.3 MG/DL (2.6-7.2)
[2016-12-07] MEDS ORDERED: diphenhydrAMINE 25 MG TAB (BENADRYL) CANCER CENTER PO ONE (10:36)
[2016-12-07] MEDS ORDERED: NS IV SCH (11:00)
[2016-12-07] MEDS ORDERED: CYCLOPHOSPHAMIDE INJECTION 1,000 MG, CYCLOPHOSPHAMIDE INJECTION 200 MG in NS (IVPB) CAN... IV SCH (11:00)
[2016-12-07] MEDS ORDERED: DOXORUBICIN HCL IV SCH (11:00)
[2016-12-07] MEDS ORDERED: vinCRIStine SULFATE 1 MG in NS (IVPB) CANCER CENTER 50 ML IV SCH (11:15)
[2016-12-07] MEDS ORDERED: riTUXimab 500 MG, riTUXimab FOR IV INJ CONC 300 MG in NS (IVPB) CANCER CENTER 186 ML IV SCH (11:15)
== END 2016-12-23 | disposition home or self-care (01) ==
LOC: ONC 08:43
PROVIDERS: ATTEND Internal Medicine Hematology & Oncology
DX: Z51.11 Encounter for antineoplastic chemotherapy (principal); C83.33 Diffuse large B-cell lymphoma, intra-abdominal lymph nodes; I12.9 Hypertensive chronic kidney disease with stage 1 through stage 4 chronic kidney disease, or unspecified chronic kidney disease; N18.3 Chronic kidney disease, stage 3 (moderate); E03.9 Hypothyroidism, unspecified; J45.909 Unspecified asthma, uncomplicated; E79.0 Hyperuricemia without signs of inflammatory arthritis and tophaceous disease; E83.52 Hypercalcemia; R10.30 Lower abdominal pain, unspecified; E66.01 Morbid (severe) obesity due to excess calories; Z68.43 Body mass index [BMI] 50.0-59.9, adult; Z79.899 Other long term (current) drug therapy
CPT/HCPCS: 36591; 80053; 83615; 83735; 84550; 85025; 96360; 96361; 96367; 96375; 96411; 96413; 96417

== ENCOUNTER 2016-12-28 09:33 | Outpatient (RCR) | payer MEDICARE ==
[~2016-12-28] VITALS: Ht 160 cm; Wt 88.0 kg
[~2016-12-28 09:33] MED LIST changes: +CYCLOPHOSPHAMIDE INJECTION 1,000 MG, CYCLOPHOSPHAMIDE INJECTION 200 MG in NS (IVPB) CAN... IV SCH; -CYCLOPHOSPHAMIDE INJECTION 800 MG in NS (IVPB) CANCER CENTER 250 ML IV SCH; -NS IV 1000 ML (CANCER CTR) 1,000 ML ONE
[2016-12-28 10:25] LABS: BASOPHILS # (AUTO) 0.1 10^3/uL (0.0-0.1); BASOPHILS % (AUTO) 1 % (0-10); EOSINOPHILS % (AUTO) 0 % (0-10); LYMPHOCYTES # (AUTO) 1.6 X 10^3 (1.0-4.0); LYMPHOCYTES % (AUTO) 22 % (12-44); MEAN CORPUSCULAR HEMOGLOBIN 30 PG (25-34); MEAN CORPUSCULAR HGB CONC 32 G/DL (32-36); MEAN CORPUSCULAR VOLUME 93 FL (80-99); MEAN PLATELET VOLUME 8.7 FL (7.4-10.4); MONOCYTES # (AUTO) 0.8 X 10^3 (0.0-1.0); MONOCYTES % (AUTO) 11 % (0-12); NEUTROPHILS % (AUTO) 66 % (42-75); PLATELET COUNT 339 10^3/uL (130-400); RED BLOOD COUNT 3.95 10^6/uL (4.35-5.85); RED CELL DISTRIBUTION WIDTH 15.1 % (10.0-14.5); WHITE BLOOD COUNT 7.5 10^3/uL (4.3-11.0)
[2016-12-28 10:44] LABS: BILIRUBIN,TOTAL 0.7 MG/DL (0.1-1.0); CALCIUM 9.8 MG/DL (8.5-10.1); CREATININE SERUM 1.01 MG/DL (0.60-1.30); MAGNESIUM 1.5 MG/DL (1.8-2.4); POTASSIUM 3.9 MMOL/L (3.6-5.0); TOTAL PROTEIN 6.6 GM/DL (6.4-8.2); URIC ACID 5.9 MG/DL (2.6-7.2)
[2016-12-28] MEDS ORDERED: diphenhydrAMINE 25 MG TAB (BENADRYL) CANCER CENTER PO ONE (11:06)
== END 2017-01-17 13:27 | disposition home or self-care (01) ==
LOC: ONC 09:33
PROVIDERS: ATTEND Internal Medicine Hematology & Oncology
DX: Z51.11 Encounter for antineoplastic chemotherapy (principal); C83.33 Diffuse large B-cell lymphoma, intra-abdominal lymph nodes; I12.9 Hypertensive chronic kidney disease with stage 1 through stage 4 chronic kidney disease, or unspecified chronic kidney disease; N18.3 Chronic kidney disease, stage 3 (moderate); E03.9 Hypothyroidism, unspecified; J45.909 Unspecified asthma, uncomplicated; E79.0 Hyperuricemia without signs of inflammatory arthritis and tophaceous disease; E83.52 Hypercalcemia; E66.01 Morbid (severe) obesity due to excess calories; Z68.43 Body mass index [BMI] 50.0-59.9, adult; Z79.899 Other long term (current) drug therapy
CPT/HCPCS: 36591; 80053; 83615; 83735; 84550; 85025; 96367; 96375; 96411; 96413; 96417

== ENCOUNTER 2017-03-01 10:32 | Outpatient (RCR) | payer MEDICARE ==
[2017-01-19 12:54] LABS: BASOPHILS % (AUTO) 0 % (0-10); EOSINOPHILS % (AUTO) 0 % (0-10); HEMATOCRIT 33 % (35-52); HEMOGLOBIN 10.5 G/DL (11.5-16.0); LYMPHOCYTES # (AUTO) 1.2 X 10^3 (1.0-4.0); LYMPHOCYTES % (AUTO) 12 % (12-44); MEAN CORPUSCULAR HEMOGLOBIN 30 PG (25-34); MEAN CORPUSCULAR HGB CONC 32 G/DL (32-36); MEAN CORPUSCULAR VOLUME 94 FL (80-99); MEAN PLATELET VOLUME 8.6 FL (7.4-10.4); MONOCYTES # (AUTO) 1.1 X 10^3 (0.0-1.0); MONOCYTES % (AUTO) 11 % (0-12); NEUTROPHILS # (AUTO) 7.5 X 10^3 (1.8-7.8); NEUTROPHILS % (AUTO) 76 % (42-75); PLATELET COUNT 359 10^3/uL (130-400); RED BLOOD COUNT 3.46 10^6/uL (4.35-5.85); RED CELL DISTRIBUTION WIDTH 17.2 % (10.0-14.5); WHITE BLOOD COUNT 9.9 10^3/uL (4.3-11.0)
[2017-01-19 13:16] LABS: ALBUMIN 3.8 GM/DL (3.2-4.5); BILIRUBIN,TOTAL 0.6 MG/DL (0.1-1.0); CALCIUM 9.2 MG/DL (8.5-10.1); CREATININE SERUM 1.02 MG/DL (0.60-1.30); MAGNESIUM 2.7 MG/DL (1.8-2.4); POTASSIUM 3.5 MMOL/L (3.6-5.0); TOTAL PROTEIN 6.3 GM/DL (6.4-8.2); URIC ACID 6.4 MG/DL (2.6-7.2)
[2017-02-09 10:05] LABS: BASOPHILS % (AUTO) 0 % (0-10); EOSINOPHILS % (AUTO) 0 % (0-10); HEMATOCRIT 30 % (35-52); HEMOGLOBIN 9.7 G/DL (11.5-16.0); LYMPHOCYTES # (AUTO) 1.1 X 10^3 (1.0-4.0); LYMPHOCYTES % (AUTO) 13 % (12-44); MEAN CORPUSCULAR HEMOGLOBIN 30 PG (25-34); MEAN CORPUSCULAR HGB CONC 32 G/DL (32-36); MEAN CORPUSCULAR VOLUME 94 FL (80-99); MEAN PLATELET VOLUME 8.6 FL (7.4-10.4); MONOCYTES # (AUTO) 0.9 X 10^3 (0.0-1.0); MONOCYTES % (AUTO) 11 % (0-12); NEUTROPHILS # (AUTO) 6.3 X 10^3 (1.8-7.8); NEUTROPHILS % (AUTO) 75 % (42-75); PLATELET COUNT 392 10^3/uL (130-400); RED BLOOD COUNT 3.24 10^6/uL (4.35-5.85); RED CELL DISTRIBUTION WIDTH 17.2 % (10.0-14.5); WHITE BLOOD COUNT 8.4 10^3/uL (4.3-11.0)
[2017-02-09 10:21] LABS: ALBUMIN 3.7 GM/DL (3.2-4.5); CALCIUM 9.4 MG/DL (8.5-10.1); CREATININE SERUM 1.1 MG/DL (0.60-1.30); POTASSIUM 3.5 MMOL/L (3.6-5.0); TOTAL PROTEIN 6.6 GM/DL (6.4-8.2)
[2017-02-09 11:36] LABS: CLARITY,URINE SLIGHTLY CLOUDY; COLOR,URINE AMBER; GLUCOSE, URINE (UA) NEGATIVE (NEGATIVE); KETONES,URINE 1+ (NEGATIVE); LEUKOCYTE ESTERASE ,URINE 2+ (NEGATIVE); NITRITE,URINE NEGATIVE (NEGATIVE); PH,URINE 5 (5-9); PROTEIN,URINE 3+ (NEGATIVE); UROBILINOGEN,URINE 4 MG/DL (NORMAL)
[2017-02-09 11:50] LABS: BACTERIA,URINE FEW /HPF; BILIRUBIN,URINE 2+ (NEGATIVE); SQUAMOUS EPITHELIAL CELL,UR >50 /HPF
[~2017-03-01] VITALS: Ht 160 cm; Wt 133.4 kg
[~2017-03-01 10:32] MED LIST changes: +diphenhydrAMINE 25 MG TAB (BENADRYL) CANCER CENTER PO ONE
[2017-03-01 11:10] LABS: BASOPHILS % (AUTO) 1 % (0-10); EOSINOPHILS % (AUTO) 14 % (0-10); HEMATOCRIT 33 % (35-52); HEMOGLOBIN 10.2 G/DL (11.5-16.0); LYMPHOCYTES % (AUTO) 15 % (12-44); MEAN CORPUSCULAR HEMOGLOBIN 30 PG (25-34); MEAN CORPUSCULAR HGB CONC 31 G/DL (32-36); MEAN CORPUSCULAR VOLUME 95 FL (80-99); MONOCYTES # (AUTO) 0.6 X 10^3 (0.0-1.0); MONOCYTES % (AUTO) 9 % (0-12); NEUTROPHILS # (AUTO) 4.3 X 10^3 (1.8-7.8); NEUTROPHILS % (AUTO) 61 % (42-75); PLATELET COUNT 259 10^3/uL (130-400); RED BLOOD COUNT 3.43 10^6/uL (4.35-5.85); RED CELL DISTRIBUTION WIDTH 15.3 % (10.0-14.5); WHITE BLOOD COUNT 7.1 10^3/uL (4.3-11.0)
[2017-03-01 11:28] LABS: ALBUMIN 3.5 GM/DL (3.2-4.5); BILIRUBIN,TOTAL 0.8 MG/DL (0.1-1.0); CALCIUM 9.4 MG/DL (8.5-10.1); CREATININE SERUM 0.92 MG/DL (0.60-1.30); POTASSIUM 3.8 MMOL/L (3.6-5.0); TOTAL PROTEIN 5.9 GM/DL (6.4-8.2)
[2017-03-01 11:43] LABS: BILIRUBIN,URINE NEGATIVE (NEGATIVE); CLARITY,URINE SLIGHTLY CLOUDY; COLOR,URINE YELLOW; GLUCOSE, URINE (UA) NEGATIVE (NEGATIVE); KETONES,URINE NEGATIVE (NEGATIVE); LEUKOCYTE ESTERASE ,URINE 3+ (NEGATIVE); NITRITE,URINE NEGATIVE (NEGATIVE); PH,URINE 5 (5-9); PROTEIN,URINE 3+ (NEGATIVE); UROBILINOGEN,URINE 1 MG/DL (NORMAL)
[2017-03-01 12:03] LABS: RBC,URINE 50-100 /HPF
[2017-03-01 12:04] LABS: BACTERIA,URINE MODERATE /HPF; SQUAMOUS EPITHELIAL CELL,UR 25-50 /HPF; WBC,URINE >100 /HPF
[2017-03-22] MEDS ORDERED: TURM1POW MC (08:43)
[2017-03-22] MEDS ORDERED: ASCO-262 PO (08:43)
[2017-03-22] MEDS ORDERED: MULT-35 PO (08:43)
[2017-03-22] MEDS ORDERED: PANT20TA3 PO (08:43)
[2017-03-22] MEDS ORDERED: ACET1TAB43 PO (08:43)
[2017-03-22] MEDS ORDERED: ONDA8TAB12 PO (08:43)
[2017-03-22] MEDS ORDERED: TURM500C4 PO (08:44)
[2017-03-22] MEDS ORDERED: UBID1CAP53 PO (08:44)
== END 2017-03-26 10:14 | disposition home or self-care (01) ==
LOC: ONC 10:32
PROVIDERS: ATTEND Internal Medicine Hematology & Oncology
DX: Z51.11 Encounter for antineoplastic chemotherapy (principal); C83.33 Diffuse large B-cell lymphoma, intra-abdominal lymph nodes; I12.9 Hypertensive chronic kidney disease with stage 1 through stage 4 chronic kidney disease, or unspecified chronic kidney disease; N18.3 Chronic kidney disease, stage 3 (moderate); E03.9 Hypothyroidism, unspecified; J45.909 Unspecified asthma, uncomplicated; E79.0 Hyperuricemia without signs of inflammatory arthritis and tophaceous disease; E83.52 Hypercalcemia; Z76.89 Persons encountering health services in other specified circumstances; E66.01 Morbid (severe) obesity due to excess calories; Z68.43 Body mass index [BMI] 50.0-59.9, adult; Z79.899 Other long term (current) drug therapy
CPT/HCPCS: 36415; 36591; 80053; 81000; 83615; 83735; 84550; 85025; 87088; 96367; 96375; 96411; 96413; 96417; 99213

== ENCOUNTER 2017-03-21 23:08 | Inpatient (IN) | payer MEDICARE ==
[~2017-03-21] VITALS: Ht 163.8 cm; Wt 140.6 kg
[~2017-03-21 23:08] MED LIST changes: -ACETAMINOPHEN 500 MG TAB (TYLENOL) CANCER CTR PO PRN; -CYCLOPHOSPHAMIDE INJECTION 1,000 MG, CYCLOPHOSPHAMIDE INJECTION 200 MG in NS (IVPB) CAN... IV SCH; -DOXORUBICIN HCL IV SCH; -FOSAPREPITANT 150 MG/NS 150 MG IVPB (CANCER CTR) IV PRN; -NS IV 1000 ML (CANCER CTR) IV SCH; -NS IV SCH; -PALONOSETRON 0.25 MG, DEXAMETHASONE 10 MG/NS 50 ML IVPB IV PRN; -PEGFILGRASTIM 6 MG/0.6 ML ONPRO KIT SQ SCH; -diphenhydrAMINE 25 MG TAB (BENADRYL) CANCER CENTER PO ONE; -diphenhydrAMINE 50 MG/ML INJ (CANCER CENTER) IV PRN; -riTUXimab 500 MG, riTUXimab FOR IV INJ CONC 300 MG in NS (IVPB) CANCER CENTER 186 ML IV SCH; -vinCRIStine SULFATE 1 MG in NS (IVPB) CANCER CENTER 50 ML IV SCH
--- OUTSIDE RECORDS SUMMARY | 2017-03-21 23:14 | XMS REPORT | Continuity of Care Document ---
Author Author [employer] Organization [facility] Address Unknown Phone Unavailable Care Team Providers Care Warp Hauler Name Role Phone [employer] Unavailable Unavailable Problems Medications Allergies, Adverse Reactions, Alerts Immunizations Results Vital Signs Encounters Location Location Details Encounter Type Encounter Number Reason For Visit Attending Provider ADM Date DC Date Status Source O 08/01/2016 Active [facility] [place] [id number] SHELDON BARR 10/06/201610/06 Active [facility] [place] [id number] 11/22/2016 Active [facility] Procedures Plan of Care Social History Assessment and Plan Family History Value Date Source Advance Directives Order Name Results Value Date Source
--- OUTSIDE RECORDS SUMMARY | 2017-03-21 23:15 | XMS REPORT | Clinical Summary ---
Author Author [facility] Organization [facility] Address Unknown Phone Unavailable Care Team Providers Care Loom Changer Name Role Phone PCP Unavailable Source Comments Some departments are not documenting in the electronic medical record. If you do not see the information that you expected, contact Release of Information in the Health Information Management department at [phone] for further assistance in locating additional records.[facility] Allergies No Known Allergies Current Medications Prescription Sig. Disp. Refills Start End Date Status Date ASCORBATE CALCIUM Take by mouth. Active (VITAMIN C PO) MULTIVITAMINS WITH Take by mouth. Active FLUORIDE (MULTI-VITAMIN PO) pantoprazole DR Take 20 mg by mouth Active (PROTONIX) 20 mg tablet daily. ondansetron (ZOFRAN ODT) Dissolve by mouth every Active 4 mg rapid dissolve 8 hours as needed for tablet Nausea or Vomiting. Place on tongue to disolve. acetaminophen/codeine 02/10/20 Active (TYLENOL #3) 300/30 mg 17 tablet allopurinol (ZYLOPRIM) 01/05/20 Active 100 mg tablet 17 ciprofloxacin (CIPRO) 250 10/24/19 Active mg tablet 17 doxepin (SINEQUAN) 25 mg 02/01/20 Active capsule 17 hydroCHLOROthiazide 02/01/20 Active (HYDRODIURIL) 25 mg 17 tablet levothyroxine (SYNTHROID) 02/01/20 Active 137 mcg tablet 17 lisinopril (PRINIVIL; 02/01/20 Active ZESTRIL) 10 mg tablet 17 meloxicam (MOBIC) 15 mg 02/01/20 Active tablet 17 levoFLOXacin (LEVAQUIN) 02/10/20 Active 500 mg tablet 17 budesonide/formoterol Inhale 2 puffs by mouth Active (SYMBICORT HFA) 160/4.5 into the lungs twice mcg inhalation daily. Active Problems Problem Noted Date DLBCL (diffuse large B cell lymphoma) (HCC) 11/22/2016 Encounters Date Type Specialty Care Team Description 02/14/2017 Office Visit Oncology Kelsie Massey MD Diffuse large B-cell lymphoma of lymph nodes of multiple regions (HCC) (Primary Dx) 02/14/2017 Orders Only Oncology Kelsie Massey MD Diffuse large B-cell lymphoma, unspecified body region (HCC) (Primary Dx) from Last 3 Months Social History Tobacco Use Types Packs/Day Years Used Date Former Smoker Smokeless Tobacco: Never Used Sex Assigned at Date Recorded Not on file Last Filed Vital Signs Vital Sign Reading Time Taken Blood Pressure 105/69 02/14/2017 12:53 PM DIRECTOR OF [employer] Pulse 107 02/14/2017 12:53 PM [employer] Temperature 36.9 C (98.5 F) 02/14/2017 12:53 PM [employer] Respiratory Rate 16 02/14/2017 12:53 PM [employer] Oxygen Saturation 97% 02/14/2017 12:53 PM [employer] Inhaled Oxygen - - Concentration Weight 135.4 kg (298 lb 9.6 oz) 11/22/2016 9:41 AM CDT Height 162.6 cm (5' 4") 11/22/2016 9:41 AM CDT Body Mass Index 51.25 11/22/2016 9:41 AM CDT Plan of Treatment Health Maintenance Due Date Last Done Comments HEPATITIS C SCREENING 1945 PHYSICAL (COMPREHENSIVE) 1952 EXAM PERTUSSIS VACCINE 1956 TETANUS VACCINE 1962 BREAST CANCER SCREENING 1985 COLORECTAL CANCER 12/29/1995 SCREENING SHINGLES VACCINE 2005 OSTEOPOROSIS SCREENING 2010 PREVNAR/PNEUMOVAX (#1) 2010 INFLUENZA VACCINE 10/24/2016 Results * CBC AND DIFF (02/14/2017 12:05 PM) Component Value Ref Range White Blood Cells 7.7 4.5 - 11.0 K/UL RBC 3.55 (L) 4.0 - 5.0 M/UL Hemoglobin 10.6 (L) 12.0 - 15.0 GM/DL Hematocrit 33.0 (L) 36 - 45 % MCV 92.9 80 - 100 FL MCH 29.9 26 - 34 PG MCHC 32.2 32.0 - 36.0 G/DL RDW 19.6 (H) 11 - 15 % Platelet Count 379 150 - 400 K/UL MPV 6.9 (L) 7 - 11 FL Neutrophils 70 41 - 77 % Lymphocytes 16 (L) 24 - 44 % Monocytes 13 (H) 4 - 12 % Eosinophils 0 0 - 5 % Basophils 1 0 - 2 % Absolute Neutrophil Count 5.40 1.8 - 7.0 K/UL Absolute Lymph Count 1.20 1.0 - 4.8 K/UL Absolute Monocyte Count 1.00 (H) 0 - 0.80 K/UL Absolute Eosinophil Count 0.00 0 - 0.45 K/UL Absolute Basophil Count 0.10 0 - 0.20 K/UL Specimen Performing Laboratory Blood [facility] [address] [place] [address] * LDH-LACTATE DEHYDROGENASE (02/14/2017 12:05 PM) Component Value Ref Range Lactate Dehydrogenase 300 (H) 100 - 210 U/L Specimen Performing Laboratory Blood [facility] [address] [place] [address] * COMPREHENSIVE METABOLIC PANEL (02/14/2017 12:05 PM) Component Value Ref Range Sodium 135 (L) 137 - 147 MMOL/L Potassium 4.2 3.5 - 5.1 MMOL/L Chloride 96 (L) 98 - 110 MMOL/L Glucose 145 (H) 70 - 100 MG/DL Blood Urea Nitrogen 16 7 - 25 MG/DL Creatinine 1.21 (H) 0.4 - 1.00 MG/DL Calcium 9.6 8.5 - 10.6 MG/DL Total Protein 6.6 6.0 - 8.0 G/DL Total Bilirubin 0.8 0.3 - 1.2 MG/DL Albumin 3.9 3.5 - 5.0 G/DL Alk Phosphatase 107 25 - 110 U/L AST (SGOT) 16 7 - 40 U/L CO2 28 21 - 30 MMOL/L ALT (SGPT) 11 7 - 56 U/L Anion Gap 11 3 - 12 eGFR Non 44 (L) >60 mL/min Comment: The eGFR is not validated for use in drug dosing adjustments. Continue to use estimated creatinine clearance per dosing reference text. Please contact the Clinical Pharmacist for questions. eGFR 53 (L) >60 mL/min Comment: The eGFR is not validated for use in drug dosing adjustments. Continue to use estimated creatinine clearance per dosing reference text. Please contact the Clinical Pharmacist for questions. Specimen Performing Laboratory Blood [facility] [address] [place] [address] from Last 3 Months
--- OUTSIDE RECORDS SUMMARY | 2017-03-21 23:15 | XMS REPORT | Encounter Summary ---
Author Author [facility] Organization [facility] Address Unknown Phone Unavailable Care Team Providers Care Knocker Off Name Role Phone PCP Unavailable Encounter Details Date Type Department Care Team Description 02/14/2017 Orders Only [facility] Kelsie Massey MD Diffuse large B-cell [facility] Exam [address] [facility] lymphoma, unspecified [address] [place] [address] body region (HCC) [place] [address] (Primary Dx) [phone] Social History Tobacco Use Types Packs/Day Years Used Date Former Smoker Smokeless Tobacco: Never Used Sex Assigned at Date Recorded Not on file as of this encounter Plan of Treatment Not on fileas of this encounter Results * LDH-LACTATE DEHYDROGENASE (02/14/2017 12:05 PM) Component Value Ref Range Lactate Dehydrogenase 300 (H) 100 - 210 U/L Specimen Performing Laboratory Blood [facility] [address] [place] [address] * CBC AND DIFF (02/14/2017 12:05 PM) [...] - 0.20 K/UL Specimen Performing Laboratory Blood [facility] [address] [place] [address] * COMPREHENSIVE METABOLIC PANEL (02/14/2017 12:05 PM) [...] Pharmacist for questions. Specimen Performing Laboratory Blood [facility] [address] [place] [address] in this encounter Visit Diagnoses Diagnosis Diffuse large B-cell lymphoma, unspecified body region (HCC) - Primary in this encounter
--- OUTSIDE RECORDS SUMMARY | 2017-03-21 23:15 | XMS REPORT | Encounter Summary ---
Author Author [facility] Organization [facility] Address Unknown Phone Unavailable Care Team Providers Care Lye Bath Operator Name Role Phone PCP Unavailable Reason for Visit * Reason Comments Heme/Onc Care Encounter Details Date Type Department Care Team Description 02/14/2017 Office Visit [facility] Kelsie Massey MD Diffuse large B-cell [facility] Exam [address] lymphoma of lymph nodes [address] [place] [address] of multiple regions (HCC) [place] [address] (Primary Dx) [phone] Social History Tobacco Use Types Packs/Day Years Used Date Former Smoker Smokeless Tobacco: Never Used Sex Assigned at Date Recorded Not on file as of this encounter Last Filed Vital Signs Vital Sign Reading Time Taken Blood Pressure 105/69 02/14/2017 12:53 PM INDUSTRIAL MECHANIC Pulse 107 02/14/2017 12:53 PM INDUSTRIAL MECHANIC Temperature 36.9 C (98.5 F) 02/14/2017 12:53 PM INDUSTRIAL MECHANIC Respiratory Rate 16 02/14/2017 12:53 PM INDUSTRIAL MECHANIC Oxygen Saturation 97% 02/14/2017 12:53 PM INDUSTRIAL MECHANIC Inhaled Oxygen - - Concentration Weight - - Height - - Body Mass Index - - in this encounter Progress Notes * Kelsie Massey MD - 02/14/2017 1:00 PM INDUSTRIAL MECHANIC Formatting of this note may be different from the original. Date of Service: 02/14/2017 Subjective: Tiesha Hadley is a 70 y.o. female. Who is here for follow-up of newly diagnosed diffuse large B-cell lymphoma status post R CHOP cycle 6. She had follow-up scans done after cycle 6 and had partial response with residual uptake in the periurethral mass. Since we have since last seen her, her R CHOP doses have been increased as she was started on mini R CHOP initially and the frequency was decreased to every 3 weeks. Since the change in the chemotherapy, she has noted excessive fatigue and worsening energy levels. Her appetite has been poor and her p.o. intake has been poor. She denies any nausea and emesis. She does not worsening neuropathy. She is back in the wheelchair and has very limited mobility due to ongoing fatigue. Her shortness of breath have worsened and her exertional shortness of breath is significantly worse now. She has alternating diarrhea and constipation. She denies fevers, chills and night sweats. Reason for Visit: Heme/Onc Care History of Present Illness She was diagnosed with diffuse large B-cell lymphoma after she had a PET scan done for abdominal pain and back pain which showed retroperitoneal mass and the biopsy results were positive for diffuse large B cell. She was evaluated by Dr. Hopson was started on R mini CHOP due to her age and other comorbidities. She had c myc BCL 2 and BCL 6 rearrangements done at that time which resulted after she had her first cycle of treatment. 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 Patient is in wheelchair today accompanied by her and son and [id number] for the visit. She feels tired and exhausted and she does note that the cycle 1 of treatment has knocked her down completely. She still recovering from the side effects of the chemotherapy. She is very worried and anxious about having an aggressive B-cell lymphoma and wants to know what could be done to improve her chances of survival. She feels fatigued and tired. She has poor appetite but has been able to eat this much as possible. She has ongoing nausea but her emesis has resolved now. She is confined to her wheelchair or bed most of the day. She is able to get up and go to the bathroom but gets very exhausted. She is very limited with her mobility in the past for the past 1 year but is even more limited right now since diagnosis of cancer and initiation of chemotherapy. She gets short of breath and exhausted with trying to get out of the bed and needs a wheelchair to wheel herself to the bathroom. She insists assistance with most of the major activities at home. Patient is a 70 year old female who presented to her PCP in July 2016 with increasing abdominal and back pain x1 month. CT scan was done showing a retroperitoneal mass. She then had an FNA of the left retroperitoneal mass with results of DLBCL. She was then referred to Dr. Fuentes who started her mini R- CHOP due to her age, other co-morbidities, and MYC pending at that time. At the time of diagnosis, she was also found to have hypercalcemia and renal failure. She is now s/p 1 cycle. With all the results back from the biopsy, Dr. 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 He does not think the patient is a good candidate for aggressive regimens like hyper CVAD. A referral was then placed to for a second opinion. Timeline of Events: DATES 06/22/16 Lab CBC: WBC 10.6, Hgb 15.2, Hct 46.5, Plt 325 08/01/16 CT - abd/pelvis Mass viewed with lymphadenopathy, suspicious for lymphoma. 08/08/16 Retroperitoneal BX Soft tissue, retroperitoneum, FNA: Diagnosis: Diffuse large B cell lymphoma of germinal center origin with aggressive features. Flow: Evidence of a B cell lymphoproliferative disorder of germinal center origin expressing CD20, CD19, CD10, and BCL-2 with kappa light chain restriction. FISH: Positive for rearrangement of the mYC gene, BCL2 gene, and BCL6 gene. Supports diagnosis of "triple hit" lymphoma. 08/22/16 PET/CT 1. Intensely hypermetabolic large left retroperitoneal mass inseparable from the left kidney, the left psoas muscle and the left para- aortic lymph node station compatible with biopsy-proven lymphoma. No definite other areas of involvement seen. 2. Multifocal muscle activity is probably physiologic secondary to muscle movements or contractions. 08/28/16 Chemo C1 D1 Mini R-CHOP (Rituxan 800 mg, Cytoxan 800 mg, Adriamycin 50 mg, Vincristine 1 mg, prednisone 80 mg) 09/27/16 Lab CBC: WBC 7.0, Hgb 10.9, Hct 34, Plt 378 Location of Films: PACS Location of Pathology: MAILED/VISUAL ASSOCIATE and Patient notified outside pathology slides will be obtained for review by pathologist and a facility and professional fee will be billed to their insurance. 7/7/17 - Requested biopsy -[id number] from [facility] Review of Systems Constitutional: Positive for activity change, appetite change and fatigue. Negative for chills, diaphoresis, fever and unexpected weight change. HENT: Negative for nosebleeds, postnasal drip, trouble swallowing and voice change. Eyes: Negative. Respiratory: Positive for apnea and shortness of breath ( worsening). Negative for cough and chest tightness. Cardiovascular: Positive for leg swelling (Improving). Negative for chest pain and palpitations. Gastrointestinal: Positive for constipation and diarrhea. Negative for abdominal pain, nausea and vomiting. Endocrine: Negative. Genitourinary: Negative for hematuria and urgency. Musculoskeletal: Negative for back pain, gait problem and neck pain. Skin: Negative for pallor and rash. Allergic/Immunologic: Negative. Neurological: Positive for numbness. Negative for facial asymmetry, speech difficulty and light-headedness. Hematological: Negative for adenopathy. Does not bruise/bleed easily. Psychiatric/Behavioral: Positive for sleep disturbance. The patient is nervous/ anxious. History reviewed. No pertinent past medical history. History reviewed. No pertinent surgical history. History reviewed. No pertinent family history. Social History Social History Marital status: Spouse name: N/A Number of children: N/A Years of education: N/A Occupational History Not on file. Social History Main Topics Smoking status: Former Smoker Smokeless tobacco: Never Used Alcohol use Not on file Drug use: Not on file Sexual activity: Not on file Other Topics Concern Not on file Social History Narrative Objective: acetaminophen/codeine (TYLENOL #3) 300/30 mg tablet allopurinol (ZYLOPRIM) 100 mg tablet ASCORBATE CALCIUM (VITAMIN C PO) Take by mouth. budesonide/formoterol (SYMBICORT HFA) 160/4.5 mcg inhalation Inhale 2 puffs by mouth into the lungs twice daily. ciprofloxacin (CIPRO) 250 mg tablet doxepin (SINEQUAN) 25 mg capsule hydroCHLOROthiazide (HYDRODIURIL) 25 mg tablet levoFLOXacin (LEVAQUIN) 500 mg tablet levothyroxine (SYNTHROID) 137 mcg tablet lisinopril (PRINIVIL; ZESTRIL) 10 mg tablet meloxicam (MOBIC) 15 mg tablet MULTIVITAMINS WITH FLUORIDE (MULTI-VITAMIN PO) Take by mouth. ondansetron (ZOFRAN ODT) 4 mg rapid dissolve tablet Dissolve by mouth every 8 hours as needed for Nausea or Vomiting. Place on tongue to disolve. pantoprazole DR (PROTONIX) 20 mg tablet Take 20 mg by mouth daily. Vitals: 02/14/17 1253 BP: 105/69 Pulse: 107 Resp: 16 Temp: 36.9 C (98.5 F) TempSrc: Oral SpO2: 97% There is no height or weight on file to calculate BMI. Pain Score: Eight Pain Loc: Abdomen Pain Addressed: Patient to call office if pain not relieved or worsened Patient Evaluated for a Clinical Trial: Patient not eligible for a treatment trial (including not needing treatment, needs palliative care, in remission). Eastern Cooperative Oncology Group performance status is 3, Capable of only limited selfcare, confined to bed or chair more than 50% of waking hours. Physical Exam Constitutional: She is oriented to person, place, and time. She appears well- developed and well-nourished. Obese. She is in wheelchair today and requiring significant assistance to stand from wheelchair. Appears weak and tired. HENT: Head: Normocephalic and atraumatic. Nose: Nose normal. Mouth/Throat: Oropharynx is clear and moist. No oropharyngeal exudate. Eyes: EOM are normal. Pupils are equal, round, and reactive to light. Neck: Normal range of motion. Neck supple. No thyromegaly present. Cardiovascular: Intact distal pulses. Exam reveals no gallop and no friction rub. No murmur heard. Distant heart sounds due to be obesity Pulmonary/Chest: Decreased breath sounds in both bilateral lower bases of the lungs. Abdominal: Soft. Bowel sounds are normal. She exhibits no mass (no hepatosplenomegaly). There is no tenderness. Musculoskeletal: Normal range of motion. Lymphadenopathy: She has no cervical adenopathy. Neurological: She is alert and oriented to person, place, and time. Skin: Skin is warm and dry. Psychiatric: She has a normal mood and affect. Assessment and Plan: Ms. Hadley is a 70-year-old female with to have diffuse large B-cell lymphoma status post 6 cycles of mini R CHOP with increased dose with each cycle.. She has ongoing exertional shortness of breath, significant limited mobility with ongoing symptoms and nausea and has had a hard time recovering from the last 3 cycles. She also has ongoing grade 1 neuropathy. For triple hit lymphoma preferred regimens R EPOCH Or hyper CVAD, Followed by transplant evaluation CR 1. However due to her performance status and multiple comorbidities we have decided to continue with the mini R CHOP and increased doses as tolerated which has been done. She is status post 6 cycles and her PET scan shows partial response with mild residual uptake in the periurethral mass. Reviewed the report from [place] with the patient and her in detail today. She has mild improvement in her performance status after cycle 3 but now has significant worsening of his performance status With worsening symptoms as the dose with the mini R CHOP as the doses have been increased. I do not think that she would be able to tolerate 2 more cycles of chemotherapy at this time. We would recommend radiation oncology evaluation at this time for the residual mass and possibly consolidative radiation and that is close surveillance with every 3 month H&P, labs and CT scans for follow-up due to her triple hit lymphoma status. She is already set up to see the local radiation oncology and I have encouraged her to follow-up with the visit and review the side effects with radiation oncology and possibly proceed with the treatment plan. I have advised her that she should continue surveillance follow-up close to home after she is done with the radiation treatment. And if she does have any evidence of relapse in future, we would be happy to see her at back again and evaluate her for clinical trials for salvage chemotherapy at that time depending on her performance status. She and her are agreeable with the plan and I have answered all her questions today in detail. Follow-up: As needed. Thank you for the consultation will be happy to assist in her care in future. in this encounter Plan of Treatment Not on fileas of this encounter Visit Diagnoses Diagnosis Diffuse large B-cell lymphoma of lymph nodes of multiple regions (HCC) - Primary in this encounter
[2017-03-21] MEDS ORDERED: NS IV 500 ML 500 ML IV ONE (23:36)
--- NOTE | 2017-03-21 23:46 | ED General ---
General Chief Complaint: Abdominal/GI Problems Stated Complaint: CYST ON KIDNEY Nursing Triage Note: PATIENT STATES SHE WAS TOLD TO COME TO THE ER BY HER PHYSICIAN, DR. JENKINS, FOR A CYST ON HER KIDNEY THAT SHOWED UP ON HER CT TODAY. Nursing Sepsis Screen: No Definite Risk Source of Information: Patient Exam Limitations: No Limitations History of Present Illness Time Seen by Provider: 23:30 Initial Comments Here with report of left-sided abdominal pain. She was seen by her primary care physician in [place], [place] today and had labs and CT done. The labs were reportedly okay by the primary care physician but the CT scan was concerning for increasing mass around the left kidney with perirenal stranding. Also concerns about pancreatic body enlargement concerning for pancreatitis. Mild ascites was noted. Patient has history of B cell lymphoma and is currently being seen by her cancer doctors here. Also has been followed by Dr. Mendez for renal mass and hydronephrosis requiring stent which has been placed. Denies fevers but does report significant weakness. Decreased appetite and poor food and fluid intake over the last 5 days reported. Timing/Duration: 1 Week, Getting Worse Severity: Moderate Associated Systoms: No Chest Pain, No Cough, No Fever/Chills, Malaise, No Nausea/Vomiting, No Shortness of Air, Weakness Allergies and Home Medications Allergies Coded Allergies: No Known Drug Allergies (Unverified , 08/01/16) Home Medications Acetaminophen with Codeine 1 Each Tablet, 1-2 TAB PO TID PRN for PAIN-MILD, ( Reported) Budesonide/Formoterol Fumarate 10.2 Gm Hfa.aer.ad, 2 PUFF IH BID, (Reported) Cyclobenzaprine HCl 5 Mg Tablet, 5 MG PO DAILY, (Reported) Doxepin HCl 25 Mg Capsule, 25 MG PO DAILY, (Reported) Hydrochlorothiazide 25 Mg Tablet, 25 MG PO DAILY, (Reported) Levothyroxine Sodium 137 Mcg Tablet, 137 MCG PO DAILY, (Reported) Lisinopril 10 Mg Tablet, 10 MG PO DAILY, (Reported) Meloxicam 15 Mg Tablet, 15 MG PO HS, (Reported) Constitutional: see HPI, No chills, No fever, weakness EENTM: no symptoms reported Respiratory: no symptoms reported Cardiovascular: no symptoms reported, No chest pain, No palpitations Gastrointestinal: abdominal pain, No diarrhea, loss of appetite, No vomiting Genitourinary: see HPI, No dysuria Musculoskeletal: no symptoms reported Skin: no symptoms reported Psychiatric/Neurological: See HPI, Weakness All Other Systems Reviewed Negative Unless Noted: Yes Past Hgavhjm-Szsluq-[id number] Hx Patient Social History Alcohol Use: Denies Use Number of Drinks Today: Alcohol Beverage of Choice: Wine Recreational Drug Use: No Smoking Status: Never a Smoker 2nd Hand Smoke Exposure: No Recent Foreign Travel: No Contact w/Someone Who Travel: No Recent Infectious Disease Expo: No Recent Hopitalizations: No Physical Abuse: No Sexual Abuse: No Immunizations Up To Date Date of Influenza Vaccine: Dec 25, 2016 Seasonal Allergies Seasonal Allergies: Yes (mild) Surgeries History of Surgeries: Yes (c/s x2, ventral hernia, ) Surgeries: Gallbladder, Hysterectomy Respiratory History of Respiratory Disorde: Yes Respiratory Disorders: Asthma Cardiovascular History of Cardiac Disorders: Yes Cardiac Disorders: Hypertension Neurological History of Neurological Disord: No 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 Genitourinary Genitourinary Disorders: Bladder Infection, Kidney Stones Gastrointestinal History of Gastrointestinal Di: Yes Gastrointestinal Disorders: Irritable Bowel Musculoskeletal History of Musculoskeletal Dis: Yes Musculoskeletal Disorders: Arthritis Endocrine History of Endocrine Disorders: Yes Cancer History of Cancer: Yes Cancer: Melanoma Did You Recieve Any Treatments: No Psychosocial History of Psychiatric Problem: No Suicide Risk Score: 0 Integumentary History of Skin or Integumenta: No Blood Transfusions History of Blood Disorders: No Reviewed Nursing Assessment Reviewed/Agree w Nursing PMH: Yes Family Medical History Significant Family History: No Pertinent Family Hx Physical Exam Vital Signs Vital Sign - Last 12Hours 03/21/17 23:17 Temp 96.4 Pulse 107 B/P (MAP) 129/79 (96) O2 Delivery Room Air Capillary Refill : Less Than 3 Seconds General Appearance: WD/WN, Mild Distress, Obese HEENT: PERRL/EOMI, Pharynx Normal Neck: Non Tender, Supple Respiratory: Lungs Clear, Normal Breath Sounds Cardiovascular: No Murmur, Tachycardia Gastrointestinal: Soft, Tenderness (throughout the greatest on the left.) Back: Normal Inspection, CVA Tenderness (L), No CVA Tenderness (R) Extremity: Normal Range of Motion, Pedal Edema (1+ bilateral lower extremities) Neurologic/Psychiatric: Alert, Oriented x3 Skin: Warm/Dry, Pallor Focused Exam Evaluation Lactate Level Laboratory Tests 03/22/17 00:17: Lactic Acid Level 4.94*H Lactic Acid Level Laboratory Tests Test 03/22/17 00:17 Lactic Acid Level 4.94 MMOL/L (0.50-2.00) *H Progress/Results/Core Measures Suspected Sepsis Recent Fever Within 48 Hours: No Infection Criteria Present: None New/Unexplained Altered Menta: No Sepsis Screen: No Definite Risk Sepsis Diagnosis: SIRS Temperature:96.4 Pulse: 107 Respiratory Rate: Laboratory Tests 03/22/17 00:17: White Blood Count 10.0 Blood Pressure 129 /79 Mean: 96 Laboratory Tests 03/22/17 00:17: Lactic Acid Level 4.94*H Laboratory Tests 03/22/17 00:17: Creatinine 1.14, Platelet Count 399, Total Bilirubin 0.6 Results/Orders Lab Results Laboratory Tests Test 03/21/17 23:45 03/22/17 00:17 Range/Units Urine Color BROWN H Urine Clarity VERY CLOUDY H Urine pH 5 5-9 Urine Specific Harris 1.020 1.016-1.022 Urine Protein 3+ H NEGATIVE Urine Glucose (UA) NEGATIVE NEGATIVE Urine Ketones 2+ H NEGATIVE Urine Nitrite NEGATIVE NEGATIVE Urine Bilirubin 1+ H NEGATIVE Urine Urobilinogen 1 NORMAL MG/DL Urine Leukocyte Esterase 3+ H NEGATIVE Urine RBC (Auto) 5+ H NEGATIVE Urine RBC 0-2 /HPF Urine WBC 25-50 H /HPF Urine Squamous Epithelial Cells 10-25 H /HPF Urine Crystals PRESENT H /LPF Urine Amorphous Sediment FEW KRISTEN URATES H /LPF Urine Bacteria MODERATE H /HPF Urine Casts NONE /LPF Urine Mucus NEGATIVE /LPF Urine Culture Indicated YES White Blood Count 10.0 4.3-11.0 10^3/uL Red Blood Count 4.00 L 4.35-5.85 10^6/uL Hemoglobin 11.6 11.5-16.0 G/DL Hematocrit 37 35-52 % Mean Corpuscular Volume 92 80-99 FL Mean Corpuscular Hemoglobin 29 25-34 PG Mean Corpuscular Hemoglobin Concent 32 32-36 G/DL Red Cell Distribution Width 14.4 10.0-14.5 % Platelet Count 399 130-400 10^3/uL Mean Platelet Volume 9.4 7.4-10.4 FL Neutrophils (%) (Auto) 69 42-75 % Lymphocytes (%) (Auto) 15 12-44 % Monocytes (%) (Auto) 11 0-12 % Eosinophils (%) (Auto) 5 0-10 % Basophils (%) (Auto) 1 0-10 % Neutrophils # (Auto) 6.9 1.8-7.8 X 10^3 Lymphocytes # (Auto) 1.5 1.0-4.0 X 10^3 Monocytes # (Auto) 1.1 H 0.0-1.0 X 10^3 Eosinophils # (Auto) 0.5 H 0.0-0.3 10^3/uL Basophils # (Auto) 0.1 0.0-0.1 10^3/uL Sodium Level 141 135-145 MMOL/L Potassium Level 3.8 3.6-5.0 MMOL/L Chloride Level 100 98-107 MMOL/L Carbon Dioxide Level 18 L 21-32 MMOL/L Anion Gap 23 H 5-14 MMOL/L Blood Urea Nitrogen 14 7-18 MG/DL Creatinine 1.14 0.60-1.30 MG/DL Estimat Glomerular Filtration Rate 47 BUN/Creatinine Ratio 12 Glucose Level 130 H 70-105 MG/DL Lactic Acid Level 4.94 *H 0.50-2.00 MMOL/L Calcium Level 12.1 H 8.5-10.1 MG/DL Magnesium Level 1.3 L 1.8-2.4 MG/DL Total Bilirubin 0.6 0.1-1.0 MG/DL Aspartate Amino Transf (AST/SGOT) 17 5-34 U/L Alanine Aminotransferase (ALT/SGPT) 8 0-55 U/L Alkaline Phosphatase 100 40-136 U/L C-Reactive Protein High Sensitivity 11.16 H 0.00-0.50 MG/DL Total Protein 5.5 L 6.4-8.2 GM/DL Albumin 3.4 3.2-4.5 GM/DL Amylase Level 29 25-125 U/L Lipase 73 8-78 U/L My Orders Orders - LINDA NARAYAN MD Amylase (03/21/17 23:36) Cbc With Automated Diff (03/21/17 23:36) Comprehensive Metabolic Panel (03/21/17 23:36) Hs C Reactive Protein (03/21/17 23:36) Lactic Acid Analyzer (03/21/17 23:36) Lipase (03/21/17 23:36) Magnesium (03/21/17 23:36) Ua Culture If Indicated (03/21/17 23:36) Blood Culture (03/21/17 23:36) Saline Lock/Iv-Start (03/21/17 23:36) Ns Iv 500 Ml (Sodium Chloride 0.9%) (03/21/17 23:36) Urine Culture (03/21/17 23:45) Saline Lock/Iv-Start (03/22/17 00:56) Ns Iv 1000 Ml (Sodium Chloride 0.9%) (03/22/17 01:00) Fentanyl Injection (Sublimaze Injection (03/22/17 01:10) Fentanyl Injection (Sublimaze Injection (03/22/17 01:10) Piperacillin Sodium/Tazobactam (Zosyn Vi (03/22/17 01:30) Ns (Ivpb) (Sodium Chloride 0.9% Ivpb Bag (03/22/17 01:38) Hydromorphone Injection (Dilaudid Inject (03/22/17 01:52) Ekg Tracing (03/22/17 01:59) Medications Given in ED Current Medications Medications Dose Ordered Sig/Tara Route Start Time Stop Time Status Last Admin Dose Admin Sodium Chloride 500 ml @ 0 mls/hr Q0M ONCE IV 03/21/17 23:36 03/21/17 23:38 DC 03/22/17 00:26 0 MLS/HR Vital Signs/I&O Vital Sign - Last 12Hours 03/21/17 23:17 Temp 96.4 Pulse 107 B/P (MAP) 129/79 (96) O2 Delivery Room Air Capillary Refill : Less Than 3 Seconds Blood Pressure Mean: 96 Progress Note : Progress Note Seen and evaluated. CT report from outside facility reviewed and dictated below. IV via port access, labs and UA ordered. Normal saline 500 mL bolus ordered. Monitor patient. Lactic acid noted be quite elevated at nearly 5. Patient has urinary tract infections and findings concerning for sepsis and this would indicate septic shock. Patient will require high-volume fluid resuscitation given this finding. Patient is morbidly obese. I will use ideal body weight which would calculated at 55 kg based on her height. We will initiate treatment at 60 kg calculation. Due to patient's cancer history and likely block. She of the ureter with the CT findings of perinephric stranding I we will initiate treatment with the secondary antibiotic of Zosyn. This was ordered 4.5 g IV 1. Patient has significant pain. Fentanyl 50 g IV ordered. 0200: Pain is not improved after fentanyl and Dilaudid 1 mg IV ordered. Patient was having chest pain and EKG was ordered. I did discuss the case with Dr. Woods at 0150. She says patient for admission, inpatient status. I will consult oncology for the morning. All findings and concerns were discussed with the patient and family including the concerns for the increasing mass. Patient is requesting full CODE STATUS. This was ordered. Admit, inpatient status. Patient and family agree with plan. Diagnostic Imaging Diagonstic Imaging: CT Plain Films/CT/US/NM/MRI: abdomen, pelvis Comments Report from [facility] impression below. Progression and soft tissue enhancing mass/left hydronephrosis at left renal pelvis with moderate left perirenal fat stranding reflecting superimposed pyelonephritis with probable abscess. Pancreatic body now appears enlarged, adjacent haziness and peripancreatic fluid collection, reflecting acute secondary moderate pancreatitis. Mild ascites. No mesenteric or retroperitoneal adenopathy is seen. Departure Communication (Admissions) Time/Spoke to Admitting Phy: 01:50 Impression Impression: Primary Impression: Septic shock Additional Impressions: Urinary tract infection Qualified Codes: N30.01 - Acute cystitis with hematuria Left kidney mass B-cell lymphoma Qualified Codes: C83.39 - Diffuse large b-cell lymphoma, extranodal and solid organ sites Disposition: 09 ADMITTED INPATIENT Condition: Critical Admissions Decision to Admit Reason: Admit from ER (General) Decision to Admit/Date: Mar 22, 2017 Time/Decision to Admit Time: 01:50 Departure-Patient Inst. Referrals: HARRY JENKINS DO (PCP/Family) Primary Care Physician LINDA NARAYAN MD Mar 21, 2017 23:46
[2017-03-21 23:50] LABS: CLARITY,URINE VERY CLOUDY; COLOR,URINE BROWN; GLUCOSE, URINE (UA) NEGATIVE (NEGATIVE); KETONES,URINE 2+ (NEGATIVE); LEUKOCYTE ESTERASE ,URINE 3+ (NEGATIVE); NITRITE,URINE NEGATIVE (NEGATIVE); PH,URINE 5 (5-9); PROTEIN,URINE 3+ (NEGATIVE); UROBILINOGEN,URINE 1 MG/DL (NORMAL)
[2017-03-21 23:56] LABS: BILIRUBIN,URINE 1+ (NEGATIVE)
[2017-03-22] VITALS (21 sets, daily range): BP systolic 96–130; BP diastolic 64–85
[2017-03-22 00:01] LABS: AMORPHOUS SEDIMENT,UR FEW AMOR URATES /LPF; BACTERIA,URINE MODERATE /HPF; RBC,URINE 0-2 /HPF; WBC,URINE 25-50 /HPF
[2017-03-22 00:33] LABS: BASOPHILS # (AUTO) 0.1 10^3/uL (0.0-0.1); BASOPHILS % (AUTO) 1 % (0-10); EOSINOPHILS # (AUTO) 0.5 10^3/uL (0.0-0.3); EOSINOPHILS % (AUTO) 5 % (0-10); HEMATOCRIT 37 % (35-52); HEMOGLOBIN 11.6 G/DL (11.5-16.0); LYMPHOCYTES # (AUTO) 1.5 X 10^3 (1.0-4.0); LYMPHOCYTES % (AUTO) 15 % (12-44); MEAN CORPUSCULAR HEMOGLOBIN 29 PG (25-34); MEAN CORPUSCULAR HGB CONC 32 G/DL (32-36); MEAN CORPUSCULAR VOLUME 92 FL (80-99); MEAN PLATELET VOLUME 9.4 FL (7.4-10.4); MONOCYTES # (AUTO) 1.1 X 10^3 (0.0-1.0); MONOCYTES % (AUTO) 11 % (0-12); NEUTROPHILS # (AUTO) 6.9 X 10^3 (1.8-7.8); NEUTROPHILS % (AUTO) 69 % (42-75); PLATELET COUNT 399 10^3/uL (130-400); RED CELL DISTRIBUTION WIDTH 14.4 % (10.0-14.5)
[2017-03-22 00:43] LABS: CALCIUM 12.1 MG/DL (8.5-10.1); MAGNESIUM 1.3 MG/DL (1.8-2.4); POTASSIUM 3.8 MMOL/L (3.6-5.0)
[2017-03-22] MEDS ORDERED: NS IV 1000 ML 1,800 ML IV PRN (01:00)
[2017-03-22 01:09] LABS: ALBUMIN 3.4 GM/DL (3.2-4.5); BILIRUBIN,TOTAL 0.6 MG/DL (0.1-1.0); CREATININE SERUM 1.14 MG/DL (0.60-1.30); TOTAL PROTEIN 5.5 GM/DL (6.4-8.2)
[2017-03-22] MEDS ORDERED: fentaNYL INJECTION 100 MCG/2 ML AMP ONE (01:10)
[2017-03-22] MEDS ORDERED: fentaNYL INJECTION 100 MCG/2 ML AMP IVP STA (01:10)
[2017-03-22] MEDS ORDERED: PIPERACILLIN/TAZO 4.5 GM VIAL (ZOSYN) IV ONE (01:30)
[2017-03-22] MEDS ORDERED: NS (IVPB) 100 ML ONE (01:38)
[2017-03-22] MEDS ORDERED: HYDROmorphone (DILAUDID) 2 MG/ML VIAL IVP STA ×2 (01:52→02:45)
--- OUTSIDE RECORDS SUMMARY | 2017-03-22 02:24 | XMS REPORT | Continuity of Care Document ---
Author Author [facility] Organization [facility] Address Unknown Phone Unavailable Care Team Providers Care Outside Operator Name Role Phone [employer] Unavailable Unavailable Problems Medications Allergies, Adverse Reactions, Alerts Immunizations Results Vital Signs Encounters Location Location Details Encounter Type Encounter Number Reason For Visit Attending Provider ADM Date DC Date Status Source O 08/01/2016 Active [facility] [place] [id number] SHELDON BARR 10/06/201610/06 Active [facility] [place] [id number] 11/22/2016 Active [facility] Procedures Plan of Care Social History Assessment and Plan Family History Value Date Source Advance Directives Order Name Results Value Date Source
--- OUTSIDE RECORDS SUMMARY | 2017-03-22 02:25 | XMS REPORT | Clinical Summary ---
Author Author [facility] Organization [facility] Address Unknown Phone Unavailable Care Team Providers Care Learning Development Specialist Name Role Phone PCP Unavailable Source Comments Some departments are not documenting in the electronic medical record. If you do not see the information that you expected, contact Release of Information in the Health Information Management department at [phone] for further assistance in locating additional records.[facility] Allergies No Known Allergies Current Medications [...] Taken Blood Pressure 105/69 02/14/2017 12:53 PM TRANSMISSION INSPECTOR Pulse 107 02/14/2017 12:53 PM TRANSMISSION INSPECTOR Temperature 36.9 C (98.5 F) 02/14/2017 12:53 PM TRANSMISSION INSPECTOR Respiratory Rate 16 02/14/2017 12:53 PM TRANSMISSION INSPECTOR Oxygen Saturation 97% 02/14/2017 12:53 PM TRANSMISSION INSPECTOR Inhaled Oxygen - - Concentration Weight 135.4 [...] - 0.20 K/UL Specimen Performing Laboratory Blood [facility] [address] [place] [address] * LDH-LACTATE DEHYDROGENASE (02/14/2017 12:05 PM) Component Value Ref Range Lactate Dehydrogenase 300 (H) 100 - 210 U/L Specimen Performing Laboratory Blood [facility] [address] [place] [id number] * COMPREHENSIVE METABOLIC PANEL (02/14/2017 12:05 PM) [...] Pharmacist for questions. Specimen Performing Laboratory Blood [facility] [address] [place] [address] from Last 3 Months
--- OUTSIDE RECORDS SUMMARY | 2017-03-22 02:25 | XMS REPORT | Encounter Summary ---
Author Author [facility] Organization [facility] Address Unknown Phone Unavailable Care Team Providers Care Laborer Shellfish Processing Name Role Phone PCP Unavailable Encounter Details Date Type Department Care Team Description 02/14/2017 Orders Only [facility] Kelsie Massey MD Diffuse large [facility] Exam [address] [facility] lymphoma, unspecified [address] [place] [address] body region (HCC) [place] [address] (Primary Dx) [phone] Social History Tobacco Use Types Packs/Day Years Used Date Former Smoker Smokeless Tobacco: Never Used Sex Assigned at Date Recorded Not on file as of this encounter Plan of Treatment Not on fileas of this encounter Results * LDH-LACTATE DEHYDROGENASE (02/14/2017 12:05 PM) Component Value Ref Range Lactate Dehydrogenase 300 (H) 100 - 210 U/L Specimen Performing Laboratory Blood [facility] [address] [place] [address] * CBC AND DIFF (02/14/2017 12:05 PM) [...] - 0.20 K/UL Specimen Performing Laboratory Blood [facility] [address] [place] [address] * COMPREHENSIVE METABOLIC PANEL (02/14/2017 12:05 PM) [...] Pharmacist for questions. Specimen Performing Laboratory Blood [facility] [address] [place] [address] in this encounter Visit Diagnoses Diagnosis Diffuse large B-cell lymphoma, unspecified body region (HCC) - Primary in this encounter
--- OUTSIDE RECORDS SUMMARY | 2017-03-22 02:25 | XMS REPORT | Encounter Summary ---
Author Author [facility] Organization [facility] Address Unknown Phone Unavailable Care Team Providers Care Adjustment Clerk Name Role Phone PCP Unavailable Reason for Visit * Reason Comments Heme/Onc Care Encounter Details Date Type Department Care Team Description 02/14/2017 Office Visit [facility] Kelsie aMssey MD Diffuse large [facility] Exam [address] lymphoma of lymph nodes [address] [place] [address] of multiple regions (HCC) [place] [address] (Primary Dx) [phone] Social History Tobacco Use Types Packs/Day Years Used Date Former Smoker Smokeless Tobacco: Never Used Sex Assigned at Date Recorded Not on file as of this encounter Last Filed Vital Signs Vital Sign Reading Time Taken Blood Pressure 105/69 02/14/2017 12:53 PM CLINICAL TEAM LEAD Pulse 107 02/14/2017 12:53 PM CLINICAL TEAM LEAD Temperature 36.9 C (98.5 F) 02/14/2017 12:53 PM CLINICAL TEAM LEAD Respiratory Rate 16 02/14/2017 12:53 PM CLINICAL TEAM LEAD Oxygen Saturation 97% 02/14/2017 12:53 PM CLINICAL TEAM LEAD Inhaled Oxygen - - Concentration Weight - - Height - - Body Mass Index - - in this encounter Progress Notes * Kelsie Massey MD - 02/14/2017 1:00 PM CLINICAL TEAM LEAD Formatting of this note may be different [...] today accompanied by her and son and [id number] for the visit. She feels tired and [...] Location of Films: PACS Location of Pathology: MAILED/RISK PREVENTION ENGINEER and Patient notified outside pathology slides will be obtained for review by pathologist and a facility and professional fee will be billed to their insurance. 7/7/17 - Requested biopsy -[id number] from [facility] Review of Systems [...] the periurethral mass. Reviewed the report from [facility] with the patient and her in detail [...]
[2017-03-22] MEDS ORDERED: PIPERACILLIN SODIUM/TAZOBACTAM 4.5 GM in NS (IVPB) 100 ML IV SCH (03:30)
[2017-03-22] MEDS ORDERED: HYDROmorphone (DILAUDID) 2 MG/ML VIAL IV PRN (03:30)
[2017-03-22] MEDS ORDERED: NS IV PRN (03:30)
[2017-03-22] MEDS: NS IV 1000 ML 1,000 ML IV SCH ×4 (04:07→23:28)
[2017-03-22 05:05] LABS: BASOPHILS % (AUTO) 0 % (0-10); EOSINOPHILS # (AUTO) 0.4 10^3/uL (0.0-0.3); EOSINOPHILS % (AUTO) 4 % (0-10); HEMATOCRIT 33 % (35-52); HEMOGLOBIN 10.2 G/DL (11.5-16.0); LYMPHOCYTES # (AUTO) 1.3 X 10^3 (1.0-4.0); LYMPHOCYTES % (AUTO) 15 % (12-44); MEAN CORPUSCULAR HEMOGLOBIN 29 PG (25-34); MEAN CORPUSCULAR HGB CONC 31 G/DL (32-36); MEAN CORPUSCULAR VOLUME 93 FL (80-99); MEAN PLATELET VOLUME 9.2 FL (7.4-10.4); MONOCYTES # (AUTO) 0.9 X 10^3 (0.0-1.0); MONOCYTES % (AUTO) 10 % (0-12); NEUTROPHILS # (AUTO) 6.1 X 10^3 (1.8-7.8); NEUTROPHILS % (AUTO) 70 % (42-75); PLATELET COUNT 339 10^3/uL (130-400); RED BLOOD COUNT 3.54 10^6/uL (4.35-5.85); RED CELL DISTRIBUTION WIDTH 14.4 % (10.0-14.5); WHITE BLOOD COUNT 8.8 10^3/uL (4.3-11.0)
[2017-03-22] MEDS: NOREPINEPHRINE 4 MG in NS (IVPB) 250 ML IV SCH ×2 (05:12→16:48)
[2017-03-22 05:26] LABS: BILIRUBIN,TOTAL 0.5 MG/DL (0.1-1.0); CALCIUM 10.7 MG/DL (8.5-10.1); CREATININE SERUM 0.96 MG/DL (0.60-1.30); MAGNESIUM 1.2 MG/DL (1.8-2.4); PHOSPHORUS 3.5 MG/DL (2.3-4.7); POTASSIUM 3.8 MMOL/L (3.6-5.0); TOTAL PROTEIN 4.7 GM/DL (6.4-8.2)
[2017-03-22] MEDS: PIPERACILLIN/TAZOBACTAM 4.5 GM/NS100 ML IVPB IV SCH ×6 (05:50→22:21)
[2017-03-22] MEDS: POTASSIUM CL 10MEQ/50ML IVPB 50 ML IV SCH (05:56)
[2017-03-22] MEDS: KCL 20 MEQ TAB (K-DUR) PO SCH (05:56)
[2017-03-22] MEDS: MAGNESIUM 1 GM/100 ML IVPB 100 ML IV SCH ×5 (05:56→08:56)
[2017-03-22] MEDS ORDERED: PHARMACY TO DOSE IV SCH (06:00)
[2017-03-22] MEDS: HYDROmorphone (DILAUDID) 2 MG/ML VIAL IV PRN ×5 (06:05→20:00)
[2017-03-22] MEDS: ONDANSETRON 4 MG/2 ML (SDV) Z0FRAN IV PRN ×2 (06:09→08:59)
--- NOTE | 2017-03-22 06:11 | Pulmonary Consultation ---
History of Present Illness History of Present Illness Date of Consultation 03/22/17 06:06 Time Seen by Provider: 06:06 Date of Admission History of Present Illness 71 yo with hx of B cell lymphoma and recent chemotherapy presented to ED after being told by PCP in [place], [place] to go to ER after finding a left mass, renal abscess, and probable pancreatitis per CT scan. Pt has been followed by Dr. Mendez for renal mass and hydronephrosis and hx of stent placement. Pt denies fever however does complain of significant weakness and decreased appetite. I am consulted for ICU management. Allergies and Home Medications Allergies Coded Allergies: No Known Drug Allergies (Unverified , 08/01/16) Home Medications Acetaminophen with Codeine 1 Each Tablet, 1-2 TAB PO TID PRN for PAIN-MILD, ( Reported) Budesonide/Formoterol Fumarate 10.2 Gm Hfa.aer.ad, 2 PUFF IH BID, (Reported) Cyclobenzaprine HCl 5 Mg Tablet, 5 MG PO DAILY, (Reported) Doxepin HCl 25 Mg Capsule, 25 MG PO DAILY, (Reported) Hydrochlorothiazide 25 Mg Tablet, 25 MG PO DAILY, (Reported) Levothyroxine Sodium 137 Mcg Tablet, 137 MCG PO DAILY, (Reported) Lisinopril 10 Mg Tablet, 10 MG PO DAILY, (Reported) Meloxicam 15 Mg Tablet, 15 MG PO HS, (Reported) Past Uqslhfm-Xltqgg-Cispry Hx Patient Social History Alcohol Use: Denies Use Number of Drinks Today: Alcohol Beverage of Choice: Wine Recreational Drug Use: No Smoking Status: Never a Smoker 2nd Hand Smoke Exposure: No Recent Foreign Travel: No Contact w/Someone Who Travel: No Recent Infectious Disease Expo: No Recent Hopitalizations: No Physical Abuse: No Sexual Abuse: No Immunizations Up To Date PED Vaccines UTD: No Date of Pneumonia Vaccine: Jan 05, 2017 Date of Influenza Vaccine: Dec 25, 2016 Seasonal Allergies Seasonal Allergies: Yes (mild) Surgeries History of Surgeries: Yes (c/s x2, ventral hernia, polyps removed) Surgeries: Gallbladder, Hysterectomy Respiratory History of Respiratory Disorde: Yes Respiratory Disorders: Asthma Currently Using CPAP: No Currently Using BIPAP: No Cardiovascular History of Cardiac Disorders: Yes Cardiac Disorders: Hypertension Neurological History of Neurological Disord: No 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 Genitourinary History of Genitourinary Disor: Yes Genitourinary Disorders: Bladder Infection, Kidney Stones Gastrointestinal History of Gastrointestinal Di: Yes Gastrointestinal Disorders: Irritable Bowel Musculoskeletal History of Musculoskeletal Dis: Yes Musculoskeletal Disorders: Arthritis Endocrine History of Endocrine Disorders: Yes HEENT History of HEENT Disorders: No Cancer History of Cancer: Yes Cancer: Lymphoma Did You Recieve Any Treatments: No Type of Tx Receive: Chemotherapy Cancer Comment: Last treatment one month ago Psychosocial History of Psychiatric Problem: No Suicide Risk Score: 0 Integumentary History of Skin or Integumenta: No Blood Transfusions History of Blood Disorders: No Adverse Reaction to a Blood Tr: No Reviewed Nursing Assessment Reviewed/Agree w Nursing PMH: Yes Family Medical History Significant Family History: No Pertinent Family Hx Family Medial History: Diabetes mellitus G8 SISTER, Onset:Unknown FH: heart failure 19 MOTHER, , Onset:60 years & older FH: leukemia 19 FATHER, , Onset:Unknown FH: lung cancer G8 BROTHER, Onset:Unknown Review of Systems Time Seen by Provider: 06:34 Constitutional: Sweats, Weakness, Malaise, No: Fever, Chills, Other Eyes: No: Pain, Vision change, Conjunctivae inflammation, Eyelid inflammation, Other, Redness ENT: Nose congestion Respiratory: Cough, Dry, Shortness of breath, SOB with excertion Cardiovascular: Lt Headedness, No: Chest Pain, Palpitations, Orthopnea, Paroxysmal Noc. Dyspnea, Edema, Other Gastrointestinal: Nausea, Abdominal Pain, Constipation Genitourinary: No Dysuria, No Frequency, No Incontinence, No Hematuria, No Retention, No Other Neurological: Weakness, Incoordination, Confusion Exam Exam Vital Signs Date Time Temp Pulse Resp B/P (MAP) Pulse Ox O2 Delivery O2 Flow Rate FiO2 03/22/17 04:00 61 7 96/73 (81) 97 Nasal Cannula 2.00 03/22/17 03:55 97 Nasal Cannula 2.00 03/22/17 03:15 96.9 61 14 128/64 (85) 92 Room Air 03/22/17 03:05 97.1 87 20 97 03/22/17 00:30 97.1 87 129/66 03/21/17 23:17 96.4 107 129/79 (96) Room Air I & O 03/22/17 07:00 Intake Total 3400 ml Balance 3400 ml General Appearance: WD/WN, Mild Distress, Obese HEENT: PERRL/EOMI, Pharynx Normal Neck: Non Tender, Supple Respiratory: Lungs Clear, Normal Breath Sounds Cardiovascular: No Murmur, Tachycardia Capillary Refill: Less Than 3 Seconds Extremity: Normal Range of Motion, Pedal Edema (1+ bilateral lower extremities) Neurologic/Psychiatric: Alert, Oriented x3 Skin: Warm/Dry, Pallor Results Lab Laboratory Tests 03/22/17 00:17 03/22/17 04:55 Assessment/Plan Assessment/Plan acute pyelonephritis with UTI r/o abscess with immunosuppression -Consult surgery - Dr. Mendez is out of town -CT scan of Abdomen from [place] report is in patients chart -Add vanco and will order PICC line Metabolic lactic acidosis probably secondary to severe sepsis -Pt has no leukocytosis or fever however she has been receiving chemotherapy -Continue severe sepsis protocol with aggressive IVF Septic shock -Aggressive IVF -Continue to monitor B cell ymphoma on current chemo -Oncology is consulted Morbid obesity 255 Discussed code status with patient while RN at bedside. Pt states her wants her to be a full code however she does not ever want chest compressions or defibrillation. Pt is ok with chemical code and short term ventilation only. Clinical Quality Measures DVT/VTE Risk/Contraindication: Risk Factor Score Per Nursin RFS Level Per Nursing on Admit: 4+=Very High JOHANA ALLEN DO Mar 22, 2017 06:11
[2017-03-22] MEDS ORDERED: VANCOMYCIN INJECTION 2,500 MG in NS IV 500 ML 500 ML IV NR (07:00)
[2017-03-22] MEDS ORDERED: MULT-35 PO (08:43)
[2017-03-22] MEDS ORDERED: ONDA8TAB12 PO (08:43)
[2017-03-22] MEDS ORDERED: ASCO-262 PO (08:43)
[2017-03-22] MEDS ORDERED: TURM1POW MC (08:43)
[2017-03-22] MEDS ORDERED: ACET1TAB43 PO (08:43)
[2017-03-22] MEDS ORDERED: PANT20TA3 PO (08:43)
[2017-03-22] MEDS ORDERED: TURM500C4 PO (08:44)
[2017-03-22] MEDS ORDERED: UBID1CAP53 PO (08:44)
--- NOTE | 2017-03-22 10:22 | History & Physical-Hospitalist ---
HPI History of Present Illness: HPI/Chief Complaint CC: Sepsis with renal abscess HPI: This is a 71-year-old white female clinic patient of Dr Mcdonald PCP in [place], [place] and Dr. Hopson for oncology of B-cell lymphoma who presents to [facility] ER when the [place] ER transferred over for higher level of care due to septic shock. Apparently there is a mass on her kidney likely an abscess from pyelonephritis she is been fluid resuscitated per septic shock protocol placed on empiric antibiotics and is in the mist of management of hypotension that has responded to fluids without pressor therapy required. Patient appears to be very end-stage cancer process so I have consulted palliative care and will review her restricted resuscitation status more clearly because she appears to have high risk for volume overload and pulmonary edema and respiratory failure. Dr. Porras has been consulted for renal abscess so it's questionable whether or not interventional radiology will be required to place drain and we will treat abdominal pain that she has in the meantime with Dilaudid. Source: patient, RN/MD Exam Limitations: clinical condition Date Seen 03/22/17 Time Seen by Provider: 08:30 Attending Physician Traci Robert DO PCP Ami Mcdonald DO Referring Physician Date of Admission Mar 22, 2017 at 01:50 Home Medications & Allergies Home Medications Reviewed patient Home Medication Reconciliation Form Allergies Allergies Coded Allergies No Known Drug Allergies (Unverified08/01/16) Past Mtoyhsk-Wiegrp-Zshqgb Hx Patient Social History Marrital Status: Employed/Student: retired Alcohol Use: Denies Use Number of Drinks Today: Alcohol Beverage of Choice: Wine Recreational Drug Use: No Smoking Status: Never a Smoker 2nd Hand Smoke Exposure: No Physical Abuse Screen: No Sexual Abuse: No Recent Foreign Travel: No Contact w/other who traveled: No Recent Hopitalizations: No Recent Infectious Disease Expo: No Immunizations Up To Date Pediatric: No Date of Pneumonia Vaccine: Jan 05, 2017 Date of Influenza Vaccine: Dec 25, 2016 Seasonal Allergies Seasonal Allergies: Yes (mild) Surgeries Yes (c/s x2, ventral hernia, polyps removed) Gallbladder, Hysterectomy Respiratory Yes Sleep Apnea Currently Using CPAP: No Currently Using BIPAP: No Cardiovascular Yes Hypertension 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 Genitourinary Yes Bladder Infection, Kidney Stones Gastrointestinal Yes Irritable Bowel Musculoskeletal Yes Arthritis Endocrine History of Endocrine Disorders: Yes HEENT History of HEENT Disorders: No Cancer Yes Lymphoma Did You Recieve Any Treatments: No Type of Treatment: Chemotherapy Cancer Comment: Last treatment one month ago Psychosocial History of Psychiatric Problem: No Integumentary History of Skin or Integumenta: No Blood Transfusions History of Blood Disorders: No Adverse Reaction to a Blood Tr: No Reviewed Nursing Assessment Reviewed/Agree w Nursing PMH: Yes Family Medical History Significant Family History: No Pertinent Family Hx Family Hx: Diabetes mellitus G8 SISTER, Onset:Unknown FH: heart failure 19 MOTHER, , Onset:60 years & older FH: leukemia 19 FATHER, , Onset:Unknown FH: lung cancer G8 BROTHER, Onset:Unknown Review of Systems Constitutional: see HPI, chills, dizziness, fever, malaise, weakness EENTM: no symptoms reported Respiratory: cough Cardiovascular: no symptoms reported Gastrointestinal: loss of appetite, nausea, vomiting Genitourinary: dysuria, frequency Musculoskeletal: no symptoms reported Skin: no symptoms reported Psychiatric/Neurological: No Symptoms Reported All Other Systems Reviewed Negative Unless Noted: Yes Physical Exam Physical Exam Vital Signs Vital Sign - Last 12Hours 03/21/17 03/22/17 03/22/17 23:17 03:05 03:55 Temp 96.4 Pulse 107 Resp 20 B/P (MAP) 129/79 (96) Pulse Ox 97 O2 Delivery Room Air O2 Flow Rate 2.00 Capillary Refill : Less Than 3 Seconds General Appearance: WD/WN, Chronically ill, Mild Distress (due to pelvic pain) , Obese Eyes: Bilateral Eye Normal Inspection, Bilateral Eye PERRL HEENT: PERRL/EOMI, Normal ENT Inspection, Pharynx Normal Neck: Full Range of Motion, Normal Inspection, Non Tender, Supple, Carotid Bruit Respiratory: Chest Non Tender, No Accessory Muscle Use, No Respiratory Distress , Decreased Breath Sounds Cardiovascular: Regular Rate, Rhythm, No Edema, No Gallop, No JVD, No Murmur, Normal Peripheral Pulses Gastrointestinal: Normal Bowel Sounds, No Organomegaly, No Pulsatile Mass, Non Tender, Soft Back: Normal Inspection, No CVA Tenderness, No Vertebral Tenderness Extremity: Normal Capillary Refill, Normal Inspection, Normal Range of Motion, Non Tender, No Calf Tenderness, No Pedal Edema Neurologic/Psychiatric: Alert, Oriented x3, No Motor/Sensory Deficits, Depressed Affect Skin: Normal Color, Cool, Damp Lymphatic: No Adenopathy Results Results/Procedures Lab Laboratory Tests 12/28/17 00:17 03/22/17 04:55 Assessment/Plan Admission Diagnosis Assessment: Septic shock Pyelonephritis Possible renal abscess MACKENZIE B-cell Lymphoma Obesity Assessment and Plan Plan: IVF per protocol Abx empiric Dr Porras to assess CT scan from [place], [place] to plan for drainage per IR or any other modality to manage Palliative care consultation Pt appears to be an end-of-life process and high risk for volume overload and VDRF Clinical Quality Measures DVT/VTE Risk/Contraindication: Risk Factor Score Per Nursin RFS Level Per Nursing on Admit: 4+=Very High TRACI ROBERT DO Mar 22, 2017 10:22
[2017-03-22] MEDS: HYDROcodone/APAP 10 MG/325 MG (LORTAB) TAB PO PRN ×2 (11:53→22:21)
[2017-03-22] MEDS: PROMETHAZINE INJ 25 MG/ML (PHENERGAN) AMP IVP PRN ×2 (14:00→22:21)
--- NOTE | 2017-03-22 14:19 | Consultation ---
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 She developed worsening diffuse abdominal pain more than a week ago and followed up with her primary care physician. She had been treated for UTI empirically in the recent past. A CT was ordered yesterday and showed a renal pelvis mass and pancreatic body mass, both with evidence of surrounding inflammation. She was told to present to our facility and she was admitted for treatment of presumed pyelonephritis/pancreatitis. Patient today reports minimal improvement with abdominal pain and also reports minimal bowel movements over the last 5 days and has had some nausea with retching this morning. Allergies and Home Medications Allergies Coded Allergies: No Known Drug Allergies (Unverified , 08/01/16) Home Medications Acetaminophen with Codeine 1 Each Tablet, 1 TAB PO Q4H PRN for PAIN-MODERATE, ( Reported) Ascorbate Calcium 500 Mg Tablet, 500 MG PO DAILY, (Reported) Budesonide/Formoterol Fumarate 10.2 Gm Hfa.aer.ad, 2 PUFF IH BID PRN for SHORTNESS OF BREATH, (Reported) Doxepin HCl 25 Mg Capsule, 25 MG PO HS, (Reported) Hydrochlorothiazide 25 Mg Tablet, 25 MG PO DAILY, (Reported) Levothyroxine Sodium 137 Mcg Tablet, 137 MCG PO DAILY, (Reported) Lisinopril 10 Mg Tablet, 10 MG PO DAILY, (Reported) Meloxicam 15 Mg Tablet, 15 MG PO DAILY, (Reported) Multivitamin 1 Each Tablet, 1 TAB PO DAILY, (Reported) Ondansetron HCl 8 Mg Tablet, 8 MG PO TID PRN for NAUSEA/VOMITING-1ST LINE, ( Reported) Pantoprazole Sodium 20 Mg Tablet.dr, 20 MG PO DAILY, (Reported) Turmeric/Turmeric Root Extract 1 Each Capsule, 1 CAP PO DAILY, (Reported) Ubidecarenone/Vit E Acetate 1 Each Capsule, 1 CAP PO DAILY, (Reported) Past Ufdzyov-Vfptuy-Wzglpb Hx Patient Social History Alcohol Use: Denies Use Number of Drinks Today: Alcohol Beverage of Choice: Wine Recreational Drug Use: No Smoking Status: Never a Smoker 2nd Hand Smoke Exposure: No Recent Foreign Travel: No Contact w/Someone Who Travel: No Recent Infectious Disease Expo: No Recent Hopitalizations: No Physical Abuse: No Sexual Abuse: No Immunizations Up To Date PED Vaccines UTD: No Date of Pneumonia Vaccine: Jan 05, 2017 Date of Influenza Vaccine: Dec 25, 2016 Seasonal Allergies Seasonal Allergies: Yes (mild) Surgeries History of Surgeries: Yes (c/s x2, ventral hernia, polyps removed) Surgeries: Gallbladder, Hysterectomy Respiratory History of Respiratory Disorde: Yes Respiratory Disorders: Asthma Currently Using CPAP: No Currently Using BIPAP: No Cardiovascular History of Cardiac Disorders: Yes Cardiac Disorders: Hypertension Neurological History of Neurological Disord: No 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 Genitourinary History of Genitourinary Disor: Yes Genitourinary Disorders: Bladder Infection, Kidney Stones Gastrointestinal History of Gastrointestinal Di: Yes Gastrointestinal Disorders: Irritable Bowel Musculoskeletal History of Musculoskeletal Dis: Yes Musculoskeletal Disorders: Arthritis Endocrine History of Endocrine Disorders: Yes HEENT History of HEENT Disorders: No Cancer History of Cancer: Yes Cancer: Lymphoma Did You Recieve Any Treatments: No Type of Tx Receive: Chemotherapy Cancer Comment: Last treatment one month ago Psychosocial History of Psychiatric Problem: No Suicide Risk Score: 0 Integumentary History of Skin or Integumenta: No Blood Transfusions History of Blood Disorders: No Adverse Reaction to a Blood Tr: No Reviewed Nursing Assessment Reviewed/Agree w Nursing PMH: Yes Family Medical History Significant Family History: No Pertinent Family Hx Family Medial History: Diabetes mellitus G8 SISTER, Onset:Unknown FH: heart failure 19 MOTHER, , Onset:60 years & older FH: leukemia 19 FATHER, , Onset:Unknown FH: lung cancer G8 BROTHER, Onset:Unknown Review of Systems-General Constitutional: No fever, weakness, weight loss EENTM: no symptoms reported Respiratory: dyspnea on exertion, No hemoptysis Gastrointestinal: abdominal pain (RUQ), constipation, No hematemesis, No melena , nausea, vomiting Genitourinary: no symptoms reported Musculoskeletal: joint pain, muscle weakness Skin: no symptoms reported Psychiatric/Neurological: No Symptoms Reported Physical Exam-General Problems Physical Exam Vital Signs Vital Sign - Last 12Hours 03/21/17 03/22/17 03/22/17 23:17 03:05 03:55 Temp 96.4 Pulse 107 Resp 20 B/P (MAP) 129/79 (96) Pulse Ox 97 O2 Delivery Room Air O2 Flow Rate 2.00 Capillary Refill : Less Than 3 Seconds General Appearance: WD/WN, moderate distress Eyes: Bilateral Eye Normal Inspection, Bilateral Eye PERRL, Bilateral Eye EOMI Gastrointestinal: no pulsatile mass, abnormal bowel sounds, distended, guarding , tenderness, No mass Rectal: deferred Extremities: non-tender, normal inspection, no pedal edema, no calf tenderness Neurologic/Psychiatric: kitchen hand II-XII nml as tested, alert, normal mood/affect, oriented x 3 Skin: normal color, warm/dry Lymphatic: no adenopathy Assessment/Plan Assessment/Plan Admission Diagnosis/Plan 71 yo female with 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 Reviewed the outside CT A/P performed on 03/21/17: progression in soft tissue enhancing mass/left hydronephrosis at left renal pelvis with moderate left perirenal fat stranding reflecting superimposed pyelonephritis with probable abscess, pancreatic body enlarged with adjacent haziness and peripancreatic fluid collection, reflecting acute secondary moderate pancreatitis, mild ascites , no mesenteric or retroperitoneal adenopathy. 1. Abdominal pain. It is unclear if her pain is secondary to the renal pelvis mass, the pancreatic mass, or both. In an acute illness situation, it is technically difficult to differentiate between an acute infectious process vs progression of lymphoma, but I think the preponderance of data supports progression of disease (i.e. lack of constitutional symptoms, afebrile, normal white count, normal amylase and lipase), and lactic acid is often elevated in progressive lymphoma. That being said, we cannot completely rule out an overlying inflammatory process. I agree with initially approaching this case as a potentially life threatening infection. Cultures may help us in that regard. 2. Diffuse large B cell lymphoma. If patient does not improve with treatment of sepsis by next week, and pain continues to be uncontrollable, or there is evidence of urinary obstruction and acute renal insufficiency, we will consider referral to radiation oncology for targeted treatment of the renal pelvis mass. She has a baseline poor functional status secondary to her body habitus and arthritis, and she did not tolerate escalated doses of CHOP chemotherapy very well, so I am not confident that she will be able to handle salvage chemotherapy in an acute hospital setting. We will continue to follow her while she is inpatient. Thank you for allowing us to assist in the care of Mrs. Hadley. Clinical Quality Measures DVT/VTE Risk/Contraindication: Risk Factor Score Per Nursin RFS Level Per Nursing on Admit: 4+=Very High Copy Copies To 1: DEJON GILLIAM Results Labs Labs Laboratory Tests 03/21/17 23:45: Urine Color BROWNH, Urine Clarity VERY CLOUDYH, Urine pH 5, Urine Specific Twisp 1.020, Urine Protein 3+H, Urine Glucose (UA) NEGATIVE, Urine Ketones 2+H , Urine Nitrite NEGATIVE, Urine Bilirubin 1+H, Urine Urobilinogen 1, Urine Leukocyte Esterase 3+H, Urine RBC (Auto) 5+H, Urine RBC 0-2, Urine WBC 25-50H, Urine Squamous Epithelial Cells 10-25H, Urine Crystals PRESENTH, Urine Amorphous Sediment FEW KRISTEN URATESH, Urine Bacteria MODERATEH, Urine Casts NONE , Urine Mucus NEGATIVE, Urine Culture Indicated YES 03/22/17 00:17: White Blood Count 10.0, Red Blood Count 4.00L, Hemoglobin 11.6, Hematocrit 37, Mean Corpuscular Volume 92, Mean Corpuscular Hemoglobin 29, Mean Corpuscular Hemoglobin Concent 32, Red Cell Distribution Width 14.4, Platelet Count 399, Mean Platelet Volume 9.4, Neutrophils (%) (Auto) 69, Lymphocytes (%) (Auto) 15, Monocytes (%) (Auto) 11, Eosinophils (%) (Auto) 5, Basophils (%) (Auto) 1, Neutrophils # (Auto) 6.9, Lymphocytes # (Auto) 1.5, Monocytes # (Auto) 1.1H, Eosinophils # (Auto) 0.5H, Basophils # (Auto) 0.1, Sodium Level 141, Potassium Level 3.8, Chloride Level 100, Carbon Dioxide Level 18L, Anion Gap 23H, Blood Urea Nitrogen 14, Creatinine 1.14, Estimat Glomerular Filtration Rate 47, BUN/ Creatinine Ratio 12, Glucose Level 130H, Lactic Acid Level 4.94*H, Calcium Level 12.1H, Magnesium Level 1.3L, Total Bilirubin 0.6, Aspartate Amino Transf ( AST/SGOT) 17, Alanine Aminotransferase (ALT/SGPT) 8, Alkaline Phosphatase 100, C -Reactive Protein High Sensitivity 11.16H, Total Protein 5.5L, Albumin 3.4, Amylase Level 29, Lipase 73 03/22/17 02:10: Lactic Acid Level 2.91*H 03/22/17 04:55: White Blood Count 8.8, Red Blood Count 3.54L, Hemoglobin 10.2L, Hematocrit 33L, Mean Corpuscular Volume 93, Mean Corpuscular Hemoglobin 29, Mean Corpuscular Hemoglobin Concent 31L, Red Cell Distribution Width 14.4, Platelet Count 339, Mean Platelet Volume 9.2, Neutrophils (%) (Auto) 70, Lymphocytes (%) (Auto) 15, Monocytes (%) (Auto) 10, Eosinophils (%) (Auto) 4, Basophils (%) (Auto) 0, Neutrophils # (Auto) 6.1, Lymphocytes # (Auto) 1.3, Monocytes # (Auto) 0.9, Eosinophils # (Auto) 0.4H, Basophils # (Auto) 0.0, Sodium Level 140, Potassium Level 3.8, Chloride Level 105, Carbon Dioxide Level 19L, Anion Gap 16H, Blood Urea Nitrogen 13, Creatinine 0.96, Estimat Glomerular Filtration Rate 57, BUN/ Creatinine Ratio 14, Glucose Level 110H, Calcium Level 10.7H, Magnesium Level 1.2L, Total Bilirubin 0.5, Aspartate Amino Transf (AST/SGOT) 15, Alanine Aminotransferase (ALT/SGPT) 7, Alkaline Phosphatase 86, Total Protein 4.7L, Albumin 3.0L, Phosphorus Level 3.5 Microbiology 03/22/17 Blood Culture - Preliminary, Resulted No growth 03/21/17 Urine Culture - Preliminary, Resulted Yeast Species GABRIEL ALVARADO MD Mar 22, 2017 14:19
--- NOTE | 2017-03-22 15:59 | Consultation ---
History of Present Illness History of Present Illness Patient Consulted On(priscilla/time) 03/22/17 15:53 Time Seen by Provider: 13:22 Reason for Visit: abdominal pain with renal and pancreatic masses History of Present Illness Surgery is asked to consult regarding possible left renal abscess. HPI: Pt was told to come to [facility] because of left-sided abdominal pain. She was seen by her primary care physician in [place], [place] and had labs and CT done. The labs were reportedly okay by the primary care physician but the CT scan was concerning for increasing mass around the left kidney with perirenal stranding. Also concerns about pancreatic body enlargement concerning for pancreatitis. Mild ascites was noted. Patient has history of B cell lymphoma and is currently being seen by her cancer doctors here. Also has been followed by Dr. Mendez for renal mass and hydronephrosis requiring stent which has been placed. Denies fevers but does report significant weakness. Decreased appetite and poor food and fluid intake over the last 5 days reported. The abdominal pain has been bad "for at least past 4 days". She presented to the ER just after midnight. Timing/Duration: 1 Week, Getting Worse Severity: Moderate - Sever Associated Systoms: No Chest Pain, No Cough, No Fever/Chills, + Malaise, No Nausea/Vomiting, No Shortness of Air, + Weakness Allergies and Home Medications Allergies Coded Allergies: No Known Drug Allergies (Unverified , 08/01/16) Home Medications Acetaminophen with Codeine 1 Each Tablet, 1 TAB PO Q4H PRN for PAIN-MODERATE, ( Reported) Ascorbate Calcium 500 Mg Tablet, 500 MG PO DAILY, (Reported) Budesonide/Formoterol Fumarate 10.2 Gm Hfa.aer.ad, 2 PUFF IH BID PRN for SHORTNESS OF BREATH, (Reported) Doxepin HCl 25 Mg Capsule, 25 MG PO HS, (Reported) Hydrochlorothiazide 25 Mg Tablet, 25 MG PO DAILY, (Reported) Levothyroxine Sodium 137 Mcg Tablet, 137 MCG PO DAILY, (Reported) Lisinopril 10 Mg Tablet, 10 MG PO DAILY, (Reported) Meloxicam 15 Mg Tablet, 15 MG PO DAILY, (Reported) Multivitamin 1 Each Tablet, 1 TAB PO DAILY, (Reported) Ondansetron HCl 8 Mg Tablet, 8 MG PO TID PRN for NAUSEA/VOMITING-1ST LINE, ( Reported) Pantoprazole Sodium 20 Mg Tablet.dr, 20 MG PO DAILY, (Reported) Turmeric/Turmeric Root Extract 1 Each Capsule, 1 CAP PO DAILY, (Reported) Ubidecarenone/Vit E Acetate 1 Each Capsule, 1 CAP PO DAILY, (Reported) Past [id number] Hx Patient Social History Alcohol Use: Denies Use Number of Drinks Today: HH Recreational Drug Use: No Smoking Status: Never a Smoker 2nd Hand Smoke Exposure: No Recent Foreign Travel: No Contact w/Someone Who Travel: No Recent Infectious Disease Expo: No Recent Hopitalizations: No Physical Abuse Screen: No Sexual Abuse: No Immunizations Up To Date PED Vaccines UTD: No Date of Pneumonia Vaccine: Jan 05, 2017 Date of Influenza Vaccine: Dec 25, 2016 Seasonal Allergies Seasonal Allergies: Yes (mild) Surgeries History of Surgeries: Yes (c/s x2, ventral hernia, polyps removed) Surgeries: Gallbladder, Hysterectomy Respiratory History of Respiratory Disorde: Yes Respiratory Disorders: Asthma Cardiovascular History of Cardiac Disorders: Yes Cardiac Disorders: Hypertension Neurological History of Neurological Disord: No 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 Genitourinary History of Genitourinary Disor: Yes Genitourinary Disorders: Bladder Infection, Kidney Stones Gastrointestinal History of Gastrointestinal Di: Yes Gastrointestinal Disorders: Irritable Bowel Musculoskeletal History of Musculoskeletal Dis: Yes Musculoskeletal Disorders: Arthritis Endocrine History of Endocrine Disorders: Yes HEENT History of HEENT Disorders: No Cancer History of Cancer: Yes Cancer: Lymphoma Psychosocial History of Psychiatric Problem: No Integumentary History of Skin or Integumenta: No Blood Transfusions History of Blood Disorders: No Adverse Reaction to a Blood Tr: No Reviewed Nursing Assessment Reviewed/Agree w Nursing PMH: Yes Family Medical History Significant Family History: Cancer, CAD Over 55 Years Old Family Medial History: Diabetes mellitus G8 SISTER, Onset:Unknown FH: heart failure 19 MOTHER, , Onset:60 years & older FH: leukemia 19 FATHER, , Onset:Unknown FH: lung cancer G8 BROTHER, Onset:Unknown Review of Systems-General Constitutional: No chills, malaise, weakness, weight loss EENTM: No hearing loss, No blurred vision, No mouth swelling, No epistaxis, No throat swelling Respiratory: No cough, No hemoptysis, No phlegm Cardiovascular: No chest pain, No edema Gastrointestinal: LUQ, LLQ, constipation, No jaundice, loss of appetite, No melena Genitourinary: dysuria, frequency, No hematuria, pain Musculoskeletal: back pain, gout, joint swelling, muscle pain, muscle stiffness Skin: No change in color, No change in hair/nails Psychiatric/Neurological: Anxiety, Depressed, Denies Seizure, Denies Tremors Other Pt has been receiving chemotherapy past 6 months and is therefore immuno- compromised, no abnormal bruising or bleeding Physical Exam-General Problems Physical Exam Vital Signs Vital Sign - Last 12Hours 03/21/17 03/22/17 03/22/17 23:17 03:05 03:55 Temp 96.4 Pulse 107 Resp 20 B/P (MAP) 129/79 (96) Pulse Ox 97 O2 Delivery Room Air O2 Flow Rate 2.00 Capillary Refill : Less Than 3 Seconds General Appearance: moderate distress, obese Eyes: Bilateral Eye PERRL, Bilateral Eye EOMI HEENT: pharynx normal, No scleral icterus (R), No scleral icterus (L), pale conjunctivae (R), pale conjunctivae (L) Neck: supple, No thyromegaly Respiratory: no accessory muscle use, crackles, rhonchi, wheezing Cardiovascular: regular rate, rhythm, no murmur Gastrointestinal: normal bowel sounds, soft, no organomegaly, no pulsatile mass , tenderness (mostly left flank) Rectal: deferred Back: no vertebral tenderness, CVA tenderness (L) Extremities: no calf tenderness, normal capillary refill Neurologic/Psychiatric: talent acquisition sourcer II-XII nml as tested, alert, normal mood/affect, oriented x 3 Skin: cool, other (dry), pallor Lymphatic: no adenopathy (supraclavicular, inguinal ) Data Review Labs Laboratory Tests 03/21/17 23:45: Urine Color BROWNH, Urine Clarity VERY CLOUDYH, Urine pH 5, Urine Specific [place] 1.020, Urine Protein 3+H, Urine Glucose (UA) NEGATIVE, Urine Ketones 2+H , Urine Nitrite NEGATIVE, Urine Bilirubin 1+H, Urine Urobilinogen 1, Urine Leukocyte Esterase 3+H, Urine RBC (Auto) 5+H, Urine RBC 0-2, Urine WBC 25-50H, Urine Squamous Epithelial Cells 10-25H, Urine Crystals PRESENTH, Urine Amorphous Sediment FEW KRISTEN URATESH, Urine Bacteria MODERATEH, Urine Casts NONE , Urine Mucus NEGATIVE, Urine Culture Indicated YES 03/22/17 00:17: White Blood Count 10.0, Red Blood Count 4.00L, Hemoglobin 11.6, Hematocrit 37, Mean Corpuscular Volume 92, Mean Corpuscular Hemoglobin 29, Mean Corpuscular Hemoglobin Concent 32, Red Cell Distribution Width 14.4, Platelet Count 399, Mean Platelet Volume 9.4, Neutrophils (%) (Auto) 69, Lymphocytes (%) (Auto) 15, Monocytes (%) (Auto) 11, Eosinophils (%) (Auto) 5, Basophils (%) (Auto) 1, Neutrophils # (Auto) 6.9, Lymphocytes # (Auto) 1.5, Monocytes # (Auto) 1.1H, Eosinophils # (Auto) 0.5H, Basophils # (Auto) 0.1, Sodium Level 141, Potassium Level 3.8, Chloride Level 100, Carbon Dioxide Level 18L, Anion Gap 23H, Blood Urea Nitrogen 14, Creatinine 1.14, Estimat Glomerular Filtration Rate 47, BUN/ Creatinine Ratio 12, Glucose Level 130H, Lactic Acid Level 4.94*H, Calcium Level 12.1H, Magnesium Level 1.3L, Total Bilirubin 0.6, Aspartate Amino Transf ( AST/SGOT) 17, Alanine Aminotransferase (ALT/SGPT) 8, Alkaline Phosphatase 100, C -Reactive Protein High Sensitivity 11.16H, Total Protein 5.5L, Albumin 3.4, Amylase Level 29, Lipase 73 03/22/17 02:10: Lactic Acid Level 2.91*H 03/22/17 04:55: White Blood Count 8.8, Red Blood Count 3.54L, Hemoglobin 10.2L, Hematocrit 33L, Mean Corpuscular Volume 93, Mean Corpuscular Hemoglobin 29, Mean Corpuscular Hemoglobin Concent 31L, Red Cell Distribution Width 14.4, Platelet Count 339, Mean Platelet Volume 9.2, Neutrophils (%) (Auto) 70, Lymphocytes (%) (Auto) 15, Monocytes (%) (Auto) 10, Eosinophils (%) (Auto) 4, Basophils (%) (Auto) 0, Neutrophils # (Auto) 6.1, Lymphocytes # (Auto) 1.3, Monocytes # (Auto) 0.9, Eosinophils # (Auto) 0.4H, Basophils # (Auto) 0.0, Sodium Level 140, Potassium Level 3.8, Chloride Level 105, Carbon Dioxide Level 19L, Anion Gap 16H, Blood Urea Nitrogen 13, Creatinine 0.96, Estimat Glomerular Filtration Rate 57, BUN/ Creatinine Ratio 14, Glucose Level 110H, Calcium Level 10.7H, Magnesium Level 1.2L, Total Bilirubin 0.5, Aspartate Amino Transf (AST/SGOT) 15, Alanine Aminotransferase (ALT/SGPT) 7, Alkaline Phosphatase 86, Total Protein 4.7L, Albumin 3.0L, Phosphorus Level 3.5 Microbiology 03/22/17 Blood Culture - Preliminary, Resulted No growth 03/21/17 Urine Culture - Preliminary, Resulted Yeast Species Assessment/Plan Assessment/Plan Assessment/Plan 1. Sepsis ??source 2. Left Renal Lymphoma 3. Left renal phlegmon, with surrounding inflammation into pancreas and left paracolic gutter 4. Atelectasis vs Early pneumonia Left lower lung I went over pt's CT from [place] with Dr. Haq; unfortunately delayed films were not done, however he doesn't think there is a definite fluid collection. Pt is poor surgical candidate, but does not need surgery at this time. She should be continued on IV ABX; awaiting blood and urine culture results. She most likley will need a repeat CT in 2-4 days to see if phlegmon resolves or turns into abscess collection. Supportive care with IV fluids, pain control is the most important thing right now. Thank you for this consult, I will follow along. Clinical Quality Measures DVT/VTE Risk/Contraindication: Risk Factor Score Per Nursin RFS Level Per Nursing on Admit: 4+=Very High MARGARITO BAILON DO Mar 22, 2017 15:59
[2017-03-22] MEDS ORDERED: VANCOMYCIN 1500 MG/NS 500 ML IVPB IV SCH ×2 (19:00)
[2017-03-23] VITALS (15 sets, daily range): BP systolic 104–170; BP diastolic 55–74
[2017-03-23] MEDS: HYDROcodone/APAP 10 MG/325 MG (LORTAB) TAB PO PRN ×3 (03:05→10:58)
[2017-03-23] MEDS: PROMETHAZINE INJ 25 MG/ML (PHENERGAN) AMP IVP PRN (03:05)
[2017-03-23 05:35] LABS: BASOPHILS % (AUTO) 0 % (0-10); EOSINOPHILS # (AUTO) 0.7 10^3/uL (0.0-0.3); EOSINOPHILS % (AUTO) 7 % (0-10); HEMATOCRIT 31 % (35-52); HEMOGLOBIN 9.2 G/DL (11.5-16.0); LYMPHOCYTES # (AUTO) 1.1 X 10^3 (1.0-4.0); LYMPHOCYTES % (AUTO) 12 % (12-44); MEAN CORPUSCULAR HEMOGLOBIN 29 PG (25-34); MEAN CORPUSCULAR HGB CONC 30 G/DL (32-36); MEAN CORPUSCULAR VOLUME 95 FL (80-99); MEAN PLATELET VOLUME 9.2 FL (7.4-10.4); MONOCYTES # (AUTO) 0.9 X 10^3 (0.0-1.0); MONOCYTES % (AUTO) 10 % (0-12); NEUTROPHILS # (AUTO) 6.3 X 10^3 (1.8-7.8); NEUTROPHILS % (AUTO) 70 % (42-75); PLATELET COUNT 291 10^3/uL (130-400); RED BLOOD COUNT 3.23 10^6/uL (4.35-5.85); RED CELL DISTRIBUTION WIDTH 14.7 % (10.0-14.5); WHITE BLOOD COUNT 8.9 10^3/uL (4.3-11.0)
[2017-03-23] MEDS: NS IV 1000 ML 1,000 ML IV SCH ×2 (05:44→06:15)
[2017-03-23] MEDS ORDERED: TROUGH ORDER-PHARMACY XX NR (06:00)
[2017-03-23 06:01] LABS: CREATININE SERUM 1.25 MG/DL (0.60-1.30); MAGNESIUM 1.7 MG/DL (1.8-2.4); PHOSPHORUS 3.4 MG/DL (2.3-4.7); POTASSIUM 3.9 MMOL/L (3.6-5.0)
[2017-03-23] MEDS: HYDROmorphone (DILAUDID) 2 MG/ML VIAL IV PRN (06:13)
[2017-03-23] MEDS: PIPERACILLIN/TAZOBACTAM 4.5 GM/NS100 ML IVPB IV SCH ×6 (06:13→21:38)
[2017-03-23] MEDS: POTASSIUM CL 10MEQ/50ML IVPB 50 ML IV SCH (06:28)
[2017-03-23] MEDS: MAGNESIUM 1 GM/100 ML IVPB 100 ML IV SCH ×3 (06:29→07:00)
[2017-03-23] MEDS: NOREPINEPHRINE 4 MG in NS (IVPB) 250 ML IV SCH (06:29)
[2017-03-23] MEDS: KCL 20 MEQ TAB (K-DUR) PO SCH (06:29)
--- NOTE | 2017-03-23 06:55 | Pulmonary Progress Note ---
Subjective Time Seen by Provider: 06:57 Subjective/Events-last exam Pt appears to be doing better. Exam Exam Vital Signs Date Time Temp Pulse Resp B/P (MAP) Pulse Ox O2 Delivery O2 Flow Rate FiO2 03/23/17 06:00 59 13 136/71 (92) 100 Nasal Cannula 3.00 03/23/17 05:00 59 18 132/63 (86) 100 Nasal Cannula 3.00 03/23/17 04:00 97.0 03/23/17 04:00 Nasal Cannula 3.00 03/23/17 04:00 60 24 113/55 (74) 100 Nasal Cannula 3.00 03/23/17 03:00 61 13 123/68 (86) 100 Nasal Cannula 3.00 03/23/17 02:00 60 10 104/58 (73) 100 Nasal Cannula 3.00 03/23/17 01:00 60 10 108/63 (78) 100 Nasal Cannula 3.00 03/23/17 01:00 60 03/23/17 00:00 62 7 111/63 (79) 100 Nasal Cannula 3.00 03/23/17 00:00 96.6 03/23/17 00:00 Nasal Cannula 3.00 03/22/17 23:00 64 7 105/66 (79) 100 Nasal Cannula 3.00 03/22/17 22:00 62 6 115/71 (86) 100 Nasal Cannula 3.00 03/22/17 21:00 62 6 116/75 (89) 100 Nasal Cannula 3.00 03/22/17 20:00 97.4 62 9 129/76 (93) 100 Nasal Cannula 3.00 03/22/17 20:00 Nasal Cannula 3.00 03/22/17 19:00 76 03/22/17 19:00 76 13 127/85 (99) 98 Nasal Cannula 3.00 03/22/17 18:00 62 14 120/72 (88) 97 Nasal Cannula 3.00 03/22/17 17:00 62 14 123/85 (98) 98 Nasal Cannula 3.00 03/22/17 16:00 Nasal Cannula 3.00 03/22/17 16:00 62 10 114/73 (87) 97 Nasal Cannula 3.00 03/22/17 15:00 63 10 99/66 (77) 98 Nasal Cannula 3.00 03/22/17 14:00 64 10 119/69 (86) 98 Nasal Cannula 3.00 03/22/17 13:03 57 03/22/17 13:00 59 10 107/71 (83) 97 Nasal Cannula 3.00 03/22/17 12:00 Nasal Cannula 3.00 03/22/17 12:00 97.2 Nasal Cannula 3.00 03/22/17 12:00 66 21 118/75 (89) 97 Nasal Cannula 3.00 03/22/17 11:00 61 10 122/77 (92) 97 Nasal Cannula 3.00 03/22/17 10:00 60 8 120/84 (96) 98 Nasal Cannula 3.00 03/22/17 09:00 58 10 124/65 (84) 96 Nasal Cannula 3.00 03/22/17 08:00 Nasal Cannula 3.00 03/22/17 08:00 61 10 130/72 (91) 96 Nasal Cannula 3.00 03/22/17 08:00 96.9 Nasal Cannula 3.00 03/22/17 07:04 66 03/22/17 07:00 64 14 120/78 (92) 95 Nasal Cannula 2.00 03/22/17 06:57 2.00 I & O 03/23/17 07:00 Intake Total 1955 ml Output Total 450 ml Balance 1505 ml General Appearance: WD/WN, Chronically ill, Mild Distress (due to pelvic pain) , Obese HEENT: PERRL/EOMI, Normal ENT Inspection, Pharynx Normal Neck: Full Range of Motion, Normal Inspection, Non Tender, Supple, Carotid Bruit Respiratory: Chest Non Tender, No Accessory Muscle Use, No Respiratory Distress , Decreased Breath Sounds Cardiovascular: Regular Rate, Rhythm, No Edema, No Gallop, No JVD, No Murmur, Normal Peripheral Pulses Capillary Refill: Less Than 3 Seconds Gastrointestinal: no pulsatile mass, abnormal bowel sounds, distended, guarding , tenderness, No mass Extremity: Normal Capillary Refill, Normal Inspection, Normal Range of Motion, Non Tender, No Calf Tenderness, No Pedal Edema Neurologic/Psychiatric: Alert, Oriented x3, No Motor/Sensory Deficits, Depressed Affect Skin: Normal Color, Cool, Damp Lymphatic: No Adenopathy Results Lab Laboratory Tests 03/22/17 00:17 03/22/17 04:55 03/23/17 05:25 Assessment/Plan Assessment/Plan acute pyelonephritis with UTI r/o abscess with immunosuppression -Surgery is following -CT scan of Abdomen from [place] report is in patients chart Metabolic lactic acidosis probably secondary to severe sepsis -repeat LA Elevated BNP -KVO IVF -lasix if LA is not still elevated B cell ymphoma on current chemo -Oncology is consulted Morbid obesity 233 Discussed code status with patient while RN at bedside. Pt states her wants her to be a full code however she does not ever want chest compressions or defibrillation. Pt is ok with chemical code and short term ventilation only. Pt is doing better. I am going to transfer to her to 4th floor. I am going to sign off. Please call with any questions or concerns. Clinical Quality Measures DVT/VTE Risk/Contraindication: Risk Factor Score Per Nursin RFS Level Per Nursing on Admit: 4+=Very High JOHANA ALLEN DO Mar 23, 2017 06:55
--- NOTE | 2017-03-23 08:01 | Progress Note ---
Subjective Time Seen by Provider: 09:39 Subjective/Events-last exam Pt seen and examined, does not look much better than yesterday. Right now her only real complaint is of left flank pain, still 10 out of 10 and not controlled. Denies vomiting. Review of Systems General: Chills, Night Sweats HEENT: Head Aches Pulmonary: Cough Gastrointestinal: Nausea, Abdominal Pain, No: Vomiting Objective Exam Vital Signs Date Time Temp Pulse Resp B/P (MAP) Pulse Ox O2 Delivery O2 Flow Rate FiO2 03/23/17 07:00 61 03/23/17 07:00 62 14 125/67 (86) 99 Nasal Cannula 3.00 03/23/17 06:00 59 13 136/71 (92) 100 Nasal Cannula 3.00 03/23/17 05:00 59 18 132/63 (86) 100 Nasal Cannula 3.00 03/23/17 04:00 97.0 03/23/17 04:00 Nasal Cannula 3.00 03/23/17 04:00 60 24 113/55 (74) 100 Nasal Cannula 3.00 03/23/17 03:00 61 13 123/68 (86) 100 Nasal Cannula 3.00 03/23/17 02:00 60 10 104/58 (73) 100 Nasal Cannula 3.00 03/23/17 01:00 60 10 108/63 (78) 100 Nasal Cannula 3.00 03/23/17 01:00 60 03/23/17 00:00 62 7 111/63 (79) 100 Nasal Cannula 3.00 03/23/17 00:00 96.6 03/23/17 00:00 Nasal Cannula 3.00 03/22/17 23:00 64 7 105/66 (79) 100 Nasal Cannula 3.00 03/22/17 22:00 62 6 115/71 (86) 100 Nasal Cannula 3.00 03/22/17 21:00 62 6 116/75 (89) 100 Nasal Cannula 3.00 03/22/17 20:00 97.4 62 9 129/76 (93) 100 Nasal Cannula 3.00 03/22/17 20:00 Nasal Cannula 3.00 03/22/17 19:00 76 03/22/17 19:00 76 13 127/85 (99) 98 Nasal Cannula 3.00 03/22/17 18:00 62 14 120/72 (88) 97 Nasal Cannula 3.00 03/22/17 17:00 62 14 123/85 (98) 98 Nasal Cannula 3.00 03/22/17 16:00 Nasal Cannula 3.00 03/22/17 16:00 62 10 114/73 (87) 97 Nasal Cannula 3.00 03/22/17 15:00 63 10 99/66 (77) 98 Nasal Cannula 3.00 03/22/17 14:00 64 10 119/69 (86) 98 Nasal Cannula 3.00 03/22/17 13:03 57 03/22/17 13:00 59 10 107/71 (83) 97 Nasal Cannula 3.00 03/22/17 12:00 Nasal Cannula 3.00 03/22/17 12:00 97.2 Nasal Cannula 3.00 03/22/17 12:00 66 21 118/75 (89) 97 Nasal Cannula 3.00 03/22/17 11:00 61 10 122/77 (92) 97 Nasal Cannula 3.00 03/22/17 10:00 60 8 120/84 (96) 98 Nasal Cannula 3.00 03/22/17 09:00 58 10 124/65 (84) 96 Nasal Cannula 3.00 03/22/17 08:00 Nasal Cannula 3.00 03/22/17 08:00 61 10 130/72 (91) 96 Nasal Cannula 3.00 03/22/17 08:00 96.9 Nasal Cannula 3.00 I & O 03/23/17 07:00 Intake Total 1955 ml Output Total 450 ml Balance 1505 ml Capillary Refill : Less Than 3 Seconds General Appearance: WD/WN, Chronically ill, Mild Distress (due to pelvic pain) , Obese HEENT: PERRL/EOMI, Pharynx Normal Neck: Carotid Bruit Respiratory: Chest Non Tender, No Accessory Muscle Use, No Respiratory Distress , Decreased Breath Sounds Cardiovascular: Regular Rate, Rhythm, No Edema, No Gallop, No JVD, No Murmur, Normal Peripheral Pulses Gastrointestinal: no pulsatile mass, abnormal bowel sounds, distended, guarding , tenderness, No mass Extremity: No Non Tender, No Calf Tenderness, No Pedal Edema Neurologic/Psychiatric: Alert, Oriented x3, No Abnormal clinical field specialist II-XII, No Abnormal Gait, No Aphasia, Depressed Affect, No Disoriented x3, No EOM Palsy, No Facial Droop, No Motor Weakness, No Sensory Deficit, No Other Skin: Normal Color, Cool, Damp Lymphatic: No Adenopathy Results Lab Laboratory Tests 03/23/17 05:25: White Blood Count 8.9, Red Blood Count 3.23L, Hemoglobin 9.2L, Hematocrit 31L, Mean Corpuscular Volume 95, Mean Corpuscular Hemoglobin 29, Mean Corpuscular Hemoglobin Concent 30L, Red Cell Distribution Width 14.7H, Platelet Count 291, Mean Platelet Volume 9.2, Neutrophils (%) (Auto) 70, Lymphocytes (%) (Auto) 12, Monocytes (%) (Auto) 10, Eosinophils (%) (Auto) 7, Basophils (%) (Auto) 0, Neutrophils # (Auto) 6.3, Lymphocytes # (Auto) 1.1, Monocytes # (Auto) 0.9, Eosinophils # (Auto) 0.7H, Basophils # (Auto) 0.0, Sodium Level 142, Potassium Level 3.9, Chloride Level 109H, Carbon Dioxide Level 19L, Anion Gap 14, Blood Urea Nitrogen 13, Creatinine 1.25, Estimat Glomerular Filtration Rate 42, BUN/ Creatinine Ratio 10, Glucose Level 93, Calcium Level 11.0H, Phosphorus Level 3.4 , Magnesium Level 1.7L, Vancomycin Level Trough 32.9*H 03/23/17 07:05: Lactic Acid Level 2.55*H Microbiology 03/22/17 Blood Culture - Preliminary, Resulted No growth 03/21/17 Urine Culture - Preliminary, Resulted Yeast Species Assessment/Plan Assessment/Plan Assessment/Plan 71 yo female with 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 Most likely all her pain come from PSBO wihch seem ot be improving . Reviewed the outside CT A/P performed on 03/21/17: progression in soft tissue enhancing mass/left hydronephrosis at left renal pelvis with moderate left perirenal fat stranding reflecting superimposed pyelonephritis with probable abscess, pancreatic body enlarged with adjacent haziness and peripancreatic fluid collection, reflecting acute secondary moderate pancreatitis, mild ascites , no mesenteric or retroperitoneal adenopathy. 1. Abdominal pain. awaiting cultures; which may help. Continue pain control and see if inflammation resovles or turns into abscess. 2. Diffuse large B cell lymphoma. (PER Oncologist) If patient does not improve with treatment of sepsis by next week, and pain continues to be uncontrollable, or there is evidence of urinary obstruction and acute renal insufficiency, we will consider referral to radiation oncology for targeted treatment of the renal pelvis mass. She has a baseline poor functional status secondary to her body habitus and arthritis, and she did not tolerate escalated doses of CHOP chemotherapy very well, so I am not confident that she will be able to handle salvage chemotherapy in an acute hospital setting. We will continue to follow her while she is inpatient. Thank you for allowing us to assist in the care of Mrs. Hadley. Clinical Quality Measures DVT/VTE Risk/Contraindication: Risk Factor Score Per Nursin RFS Level Per Nursing on Admit: 4+=Very High MARGARITO BAILON DO Mar 23, 2017 08:01
--- NOTE | 2017-03-23 10:24 | Diagnostic Imaging Report ---
CHEST 1 VIEW, AP/PA ONLY Indication: Dyspnea Comparison: 08/24/2016 Findings: Support Devices: Stable right IJ Port-A-Cath. Chest: Low lung volumes. Increased opacification of the left lower hemithorax. No pneumothorax. Stable cardiomegaly. Impression: 1. Stable support devices. 2. Increased opacification left lower hemithorax may relate to pleural effusion, atelectasis or pneumonia. Underlying mass lesion cannot be excluded. Dictated by: Dictated on workstation # [id number]
[2017-03-23] MEDS ORDERED: NS IV 1000 ML 1,000 ML IV SCH (10:42)
[2017-03-23] MEDS ORDERED: diphenhydrAMINE 50 MG/ML INJ (BENADRYL) IV PRN (10:45)
[2017-03-23] MEDS ORDERED: ONDANSETRON 4 MG/2 ML (SDV) Z0FRAN IV PRN (10:45)
[2017-03-23] MEDS ORDERED: NALOXONE 0.4 MG/ML 1 ML (NARCAN) VIAL IV PRN (10:45)
[2017-03-23] MEDS ORDERED: METOCLOPRAMIDE INJ 10 MG/2 ML (REGLAN) IV PRN (10:45)
[2017-03-23] MEDS ORDERED: BISACODYL 10 MG SUPP (DULCOLAX) PR PRN (11:00)
[2017-03-23] MEDS ORDERED: FUROSEMIDE 40 MG/4 ML INJ (LASIX) IVP NR (11:39)
[2017-03-23] MEDS: HYDROmorphone PF INJECTION 10 MG in NS (IVPB) 50 ML IV SCH (12:25)
[2017-03-23] MEDS: LACTULOSE SYRUP 10GM/15ML (ENULOSE) 30ML UDC PO SCH ×2 (12:26→20:42)
--- NOTE | 2017-03-23 12:27 | Progress Note-Hospitalist ---
Progress Note HPI/CC on Admission CC: Sepsis with renal abscess HPI: This is a 71-year-old white female clinic patient of Dr Mcdonald PCP in [place], [place] and Dr. Hopson for oncology of B-cell lymphoma who presents to [facility] ER when the [place] ER transferred over for higher level of care due to septic shock. Apparently there is a mass on her kidney likely an abscess from pyelonephritis she is been fluid resuscitated per septic shock protocol placed on empiric antibiotics and is in the mist of management of hypotension that has responded to fluids without pressor therapy required. Patient appears to be very end-stage cancer process so I have consulted palliative care and will review her restricted resuscitation status more clearly because she appears to have high risk for volume overload and pulmonary edema and respiratory failure. Dr. Porras has been consulted for renal abscess so it's questionable whether or not interventional radiology will be required to place drain and we will treat abdominal pain that she has in the meantime with Dilaudid. 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 Pt confirms seeing Dr. Arenas Physical exam stable. Lungs sound perfect Pt was informed that I will be given cream for her skin Pt denies BM and pt was informed that I will start a bowel regimen. Pt was visibly in pain as the interview concluded No fever, vital signs stable, improved, family at bedside, chronically ill Regular rate and rhythm, clear to auscultation bilaterally but diminished in the bases No edema Generalized abdominal pain to palpation Laboratory Tests 03/23/17 05:25 Assessment: Septic shock Pyelonephritis Possible renal abscess MACKENZIE B-cell Lymphoma Obesity Severe abdominal pain Plan: IVF decrease due to overload concerns Abx empiric but DC Ming Porras to assess CT scan from [place], [place] to plan for drainage per IR or any other modality to manage Palliative care consultation Nystatin cream and powder for yeast on skin and Diflucan for yeast in urine 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 Traci Robert. TRACI ROBERT DO Mar 23, 2017 12:27
[2017-03-23] MEDS: FLUCONAZOLE 100 MG/50 ML 50 ML IV SCH (12:28)
[2017-03-23] MEDS: MICONAZOLE 2% POWDER (DESENEX AF) 90 GM TOP SCH (12:30)
[2017-03-23] MEDS: ONDANSETRON 4 MG/2 ML (SDV) Z0FRAN IV PRN ×2 (13:54→20:45)
[2017-03-23] MEDS: NYSTATIN CREAM (MYCOSTATIN) 30 GM TUBE TP SCH ×2 (15:08→20:42)
[2017-03-23] MEDS ORDERED: RT-ADVAIR HFA 115/21 MCG PER PUFF IH PRN (20:00)
[2017-03-23] MEDS: DOCUSATE SODIUM 100 MG (COLACE) CAP PO SCH (20:42)
[2017-03-23] MEDS: DOXEPIN 25 MG (SINEquan) CAP PO SCH (20:42)
[2017-03-24] VITALS: BP 178/74
[2017-03-24 04:28] VITALS: BP 153/67
[2017-03-24] MEDS ORDERED: TROUGH ORDER-PHARMACY XX NR (06:00)
[2017-03-24] MEDS: LEVOTHYROXINE 25 MCG (LEVOTHROID) TAB PO SCH (06:42)
[2017-03-24] MEDS: LEVOTHYROXINE 112 MCG (LEVOTHROID) TAB PO SCH (06:42)
[2017-03-24] MEDS: PANTOPRAZOLE 20 MG TABLET (PROTONIX) PO SCH (06:42)
[2017-03-24] MEDS: PIPERACILLIN/TAZOBACTAM 4.5 GM/NS100 ML IVPB IV SCH ×6 (06:43→22:06)
[2017-03-24 06:55] LABS: BASOPHILS % (AUTO) 0 % (0-10); EOSINOPHILS # (AUTO) 0.6 10^3/uL (0.0-0.3); EOSINOPHILS % (AUTO) 6 % (0-10); HEMATOCRIT 30 % (35-52); HEMOGLOBIN 9.3 G/DL (11.5-16.0); LYMPHOCYTES # (AUTO) 1.1 X 10^3 (1.0-4.0); LYMPHOCYTES % (AUTO) 12 % (12-44); MEAN CORPUSCULAR HEMOGLOBIN 29 PG (25-34); MEAN CORPUSCULAR HGB CONC 31 G/DL (32-36); MEAN CORPUSCULAR VOLUME 94 FL (80-99); MEAN PLATELET VOLUME 9.2 FL (7.4-10.4); MONOCYTES # (AUTO) 0.9 X 10^3 (0.0-1.0); MONOCYTES % (AUTO) 9 % (0-12); NEUTROPHILS # (AUTO) 6.9 X 10^3 (1.8-7.8); NEUTROPHILS % (AUTO) 73 % (42-75); PLATELET COUNT 280 10^3/uL (130-400); RED BLOOD COUNT 3.22 10^6/uL (4.35-5.85); RED CELL DISTRIBUTION WIDTH 14.9 % (10.0-14.5); WHITE BLOOD COUNT 9.4 10^3/uL (4.3-11.0)
[2017-03-24 07:13] LABS: CALCIUM 11.9 MG/DL (8.5-10.1); CREATININE SERUM 1.38 MG/DL (0.60-1.30); MAGNESIUM 1.7 MG/DL (1.8-2.4); PHOSPHORUS 2.7 MG/DL (2.3-4.7); POTASSIUM 3.4 MMOL/L (3.6-5.0)
[2017-03-24 07:16] LABS: ALBUMIN 2.9 GM/DL (3.2-4.5); BILIRUBIN,TOTAL 0.5 MG/DL (0.1-1.0); CALCIUM 11.8 MG/DL (8.5-10.1); CREATININE SERUM 1.36 MG/DL (0.60-1.30); POTASSIUM 3.4 MMOL/L (3.6-5.0); TOTAL PROTEIN 4.7 GM/DL (6.4-8.2)
[2017-03-24 08:00] VITALS: BP 137/63
[2017-03-24] MEDS: DOCUSATE SODIUM 100 MG (COLACE) CAP PO SCH ×2 (08:45→20:16)
[2017-03-24] MEDS: SENNA W/DOCUSATE (SENOKOT S) TABLET PO SCH (08:46)
[2017-03-24] MEDS: HYDROcodone/APAP 10 MG/325 MG (LORTAB) TAB PO PRN ×2 (08:46→20:17)
[2017-03-24] MEDS: MICONAZOLE 2% POWDER (DESENEX AF) 90 GM TOP SCH ×2 (08:51→20:16)
[2017-03-24] MEDS: ONDANSETRON 4 MG/2 ML (SDV) Z0FRAN IV PRN (08:58)
[2017-03-24] MEDS: FLUCONAZOLE 100 MG/50 ML 50 ML IV SCH (09:00)
[2017-03-24] MEDS: NS IV 1000 ML 1,000 ML IV SCH (09:02)
[2017-03-24] MEDS: LACTULOSE SYRUP 10GM/15ML (ENULOSE) 30ML UDC PO SCH ×2 (09:11→20:16)
[2017-03-24] MEDS: NYSTATIN CREAM (MYCOSTATIN) 30 GM TUBE TP SCH ×3 (09:25→20:16)
[2017-03-24] MEDS: HYDROmorphone PF INJECTION 10 MG in NS (IVPB) 50 ML IV SCH (11:58)
[2017-03-24 12:00] VITALS: BP 145/72
--- NOTE | 2017-03-24 13:40 | Progress Note-Hospitalist ---
Progress Note HPI/CC on Admission CC: Sepsis with renal abscess HPI: This is a 71-year-old white female clinic patient of Dr Mcdonald PCP in [place], [place] and Dr. Hopson for oncology of B-cell lymphoma who presents to [facility] ER when the [place] ER transferred over for higher level of care due to septic shock. Apparently there is a mass on her kidney likely an abscess from pyelonephritis she is been fluid resuscitated per septic shock protocol placed on empiric antibiotics and is in the mist of management of hypotension that has responded to fluids without pressor therapy required. Patient appears to be very end-stage cancer process so I have consulted palliative care and will review her restricted resuscitation status more clearly because she appears to have high risk for volume overload and pulmonary edema and respiratory failure. Dr. Porras has been consulted for renal abscess so it's questionable whether or not interventional radiology will be required to place drain and we will treat abdominal pain that she has in the meantime with Dilaudid. Progress Notes/Assess & Plan Date Seen 03/24/17 Time Seen by Provider: 11:00 Admission Dx/Process Assessment: Septic shock Pyelonephritis Possible renal abscess MACKENZIE B-cell Lymphoma Obesity Diagonsis/Assessment & Plan Patient doing well but lactic acid remains elevated and no other option other than maintaining broad antibiotic coverage and supportive care Dilaudid DELI COOK giving her good pain control I had a good conversation with her and he appreciated my honesty when I told him that things do not look optimistic as far as recovery in the lymphoma was complicating the situation along with her other severe comorbidities and he understands that Will try to support her in any way possible but patient appears to be at the end of her life. No fever, vital signs stable, chronically ill, lying supine in bed, appearing end-of-life stage Regular rate and rhythm, clear to auscultation bilaterally but diminished all breath sounds in all sandoval No edema Generalized abdominal pain to palpation Laboratory Tests 03/24/17 06:52 Assessment: Septic shock Pyelonephritis Possible renal abscess MACKENZIE B-cell Lymphoma Obesity Severe abdominal pain Plan: IVF decrease due to overload concerns Abx empiric but DC Vanc Dr Rosario to assess early kidney abscess Palliative care consultation Nystatin cream and powder for yeast on skin and Diflucan for yeast in urine DC Dilaudid IVP DELI COOK Dilaudid Colace, Lactulose AM labs Reviewing home meds due to BP elevation Give one dose of Lasix 20 mg IV due to tremendous amount of fluid given in ICU Prognosis guarded and now made aware of that and he accepts the possibility of imminent If patient declines further we'll place on comfort care protocol Scribed by Anna Rivera under direct supervision of Dr. Traci Robert. TRACI ROBERT DO Mar 24, 2017 13:40
[2017-03-24 16:00] VITALS: BP 126/61
--- NOTE | 2017-03-24 17:10 | Progress Note ---
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 She does not have any fever. Lactic acid elevating. Blood cultures no growth. Family at bedside. Objective Exam Vital Signs Date Time Temp Pulse Resp B/P (MAP) Pulse Ox O2 Delivery O2 Flow Rate FiO2 03/24/17 16:00 98.0 68 16 126/61 (82) 94 Nasal Cannula 2.00 03/24/17 14:01 96 Nasal Cannula 1.00 03/24/17 12:00 97.2 65 18 145/72 (96) 95 Nasal Cannula 2.00 03/24/17 11:16 95 Nasal Cannula 1.00 03/24/17 09:00 96 Nasal Cannula 2.00 03/24/17 08:00 97.4 61 18 137/63 (87) 96 Nasal Cannula 2.00 03/24/17 04:28 96.5 66 15 153/67 (95) 91 Room Air 03/24/17 03:18 96 Nasal Cannula 1.00 03/24/17 00:00 96.4 71 17 178/74 (108) 97 Nasal Cannula 2.00 03/23/17 23:27 96 Nasal Cannula 2.00 03/23/17 21:00 Nasal Cannula 3.00 03/23/17 20:00 97.8 66 20 170/74 (106) 97 Nasal Cannula 3.00 03/23/17 19:45 96 Nasal Cannula 3.00 I & O 03/24/17 07:00 Intake Total 860 ml Output Total 725 ml Balance 135 ml Capillary Refill : Less Than 3 Seconds General Appearance: WD/WN, Chronically ill, Mild Distress (due to pelvic pain) , Obese HEENT: PERRL/EOMI, Pharynx Normal Neck: Non Tender Respiratory: Chest Non Tender, No Accessory Muscle Use, No Respiratory Distress , Decreased Breath Sounds Cardiovascular: Regular Rate, Rhythm Gastrointestinal: no pulsatile mass, abnormal bowel sounds, distended, guarding , tenderness (more left sided), No mass Extremity: No Non Tender, No Calf Tenderness, No Pedal Edema Neurologic/Psychiatric: Alert, Oriented x3, No Abnormal cashier general II-XII, No Abnormal Gait, No Aphasia, Depressed Affect, No Disoriented x3, No EOM Palsy, No Facial Droop, No Motor Weakness, No Sensory Deficit, No Other Skin: Normal Color Lymphatic: No Adenopathy Results Lab Laboratory Tests 03/24/17 06:52: White Blood Count 9.4, Red Blood Count 3.22L, Hemoglobin 9.3L, Hematocrit 30L, Mean Corpuscular Volume 94, Mean Corpuscular Hemoglobin 29, Mean Corpuscular Hemoglobin Concent 31L, Red Cell Distribution Width 14.9H, Platelet Count 280, Mean Platelet Volume 9.2, Neutrophils (%) (Auto) 73, Lymphocytes (%) (Auto) 12, Monocytes (%) (Auto) 9, Eosinophils (%) (Auto) 6, Basophils (%) (Auto) 0, Neutrophils # (Auto) 6.9, Lymphocytes # (Auto) 1.1, Monocytes # (Auto) 0.9, Eosinophils # (Auto) 0.6H, Basophils # (Auto) 0.0, Sodium Level 142, Potassium Level 3.4L, Chloride Level 109H, Carbon Dioxide Level 20L, Anion Gap 13, Blood Urea Nitrogen 17, Creatinine 1.38H, Estimat Glomerular Filtration Rate 38, BUN/ Creatinine Ratio 12, Glucose Level 101, Calcium Level 11.9H, Phosphorus Level 2.7, Magnesium Level 1.7L, Total Bilirubin 0.5, Aspartate Amino Transf (AST/SGOT ) 15, Alanine Aminotransferase (ALT/SGPT) 8, Alkaline Phosphatase 76, Total Protein 4.7L, Albumin 2.9L 03/24/17 09:15: Lactic Acid Level 3.06*H Microbiology 03/22/17 Blood Culture - Preliminary, Resulted No growth 03/22/17 MRSA Screen - Final, Complete MRSA not isolated 03/21/17 Urine Culture - Final, Complete Lactobacillus Species Yeast Species Assessment/Plan Assessment/Plan Assessment/Plan abdominal pain pelvis and left side diffuse large b cell lymphoma pain better controlled with 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
[2017-03-24 20:00] VITALS: BP 144/67
[2017-03-24] MEDS: DOXEPIN 25 MG (SINEquan) CAP PO SCH (20:16)
[2017-03-24] MEDS ORDERED: RT-ALBUTEROL/IPRATROPIUM 3 ML (DUONEB) VIAL INH ONE (21:30)
[2017-03-25] VITALS: BP 130/61
[2017-03-25 04:00] VITALS: BP 142/65
[2017-03-25] MEDS: PANTOPRAZOLE 20 MG TABLET (PROTONIX) PO SCH (06:23)
[2017-03-25] MEDS: PIPERACILLIN/TAZOBACTAM 4.5 GM/NS100 ML IVPB IV SCH ×2 (06:23)
[2017-03-25] MEDS: LEVOTHYROXINE 112 MCG (LEVOTHROID) TAB PO SCH (06:23)
[2017-03-25] MEDS: LEVOTHYROXINE 25 MCG (LEVOTHROID) TAB PO SCH (06:23)
[2017-03-25 06:44] LABS: BASOPHILS % (AUTO) 1 % (0-10); EOSINOPHILS # (AUTO) 0.4 10^3/uL (0.0-0.3); EOSINOPHILS % (AUTO) 5 % (0-10); HEMATOCRIT 31 % (35-52); HEMOGLOBIN 9.3 G/DL (11.5-16.0); LYMPHOCYTES # (AUTO) 0.7 X 10^3 (1.0-4.0); LYMPHOCYTES % (AUTO) 9 % (12-44); MEAN CORPUSCULAR HEMOGLOBIN 28 PG (25-34); MEAN CORPUSCULAR HGB CONC 30 G/DL (32-36); MEAN CORPUSCULAR VOLUME 95 FL (80-99); MEAN PLATELET VOLUME 9.2 FL (7.4-10.4); MONOCYTES # (AUTO) 0.6 X 10^3 (0.0-1.0); MONOCYTES % (AUTO) 8 % (0-12); NEUTROPHILS # (AUTO) 6.2 X 10^3 (1.8-7.8); NEUTROPHILS % (AUTO) 78 % (42-75); PLATELET COUNT 275 10^3/uL (130-400); RED BLOOD COUNT 3.28 10^6/uL (4.35-5.85)
[2017-03-25 07:00] LABS: CALCIUM 12.9 MG/DL (8.5-10.1); CREATININE SERUM 1.38 MG/DL (0.60-1.30); MAGNESIUM 1.6 MG/DL (1.8-2.4); PHOSPHORUS 2.6 MG/DL (2.3-4.7); POTASSIUM 3.1 MMOL/L (3.6-5.0)
[2017-03-25] MEDS: HYDROcodone/APAP 10 MG/325 MG (LORTAB) TAB PO PRN (08:11)
[2017-03-25 08:12] VITALS: BP 133/76
[2017-03-25] MEDS: DOCUSATE SODIUM 100 MG (COLACE) CAP PO SCH ×2 (08:14→19:30)
[2017-03-25] MEDS: FLUCONAZOLE 100 MG/50 ML 50 ML IV SCH (08:14)
[2017-03-25] MEDS: SENNA W/DOCUSATE (SENOKOT S) TABLET PO SCH (08:14)
[2017-03-25] MEDS: MICONAZOLE 2% POWDER (DESENEX AF) 90 GM TOP SCH ×2 (08:15→19:29)
[2017-03-25] MEDS: NYSTATIN CREAM (MYCOSTATIN) 30 GM TUBE TP SCH ×3 (08:15→19:30)
[2017-03-25] MEDS: LACTULOSE SYRUP 10GM/15ML (ENULOSE) 30ML UDC PO SCH ×2 (08:15→08:20)
[2017-03-25] MEDS: NS IV 1000 ML 1,000 ML IV SCH ×2 (08:17→12:15)
[2017-03-25 11:20] LABS: ALBUMIN 2.8 GM/DL (3.2-4.5); BILIRUBIN,TOTAL 0.5 MG/DL (0.1-1.0); CALCIUM 12.9 MG/DL (8.5-10.1); CREATININE SERUM 1.41 MG/DL (0.60-1.30); POTASSIUM 3.3 MMOL/L (3.6-5.0); TOTAL PROTEIN 4.6 GM/DL (6.4-8.2)
[2017-03-25] MEDS ORDERED: ARTIFICAL TEARS 0.4 ML UNIT DOSE (REFRESH PLUS) OU PRN (11:45)
[2017-03-25] MEDS ORDERED: ACETAMINOPHEN 650 MG SUPP (TYLENOL) PR PRN (11:45)
[2017-03-25] MEDS ORDERED: ARTIFICIAL TEARS OINT (LACRI-LUBE) 3.5 GM TUBE OU PRN (11:45)
[2017-03-25] MEDS ORDERED: GLYCOPYRROLATE 0.2 MG/ML (ROBINUL) 2 ML VIAL IV PRN (11:45)
[2017-03-25] MEDS ORDERED: SALIVA STIMULANT MOUTH SPRAY (BIOTENE) 1.5 OZ MM PRN (11:45)
--- NOTE | 2017-03-25 11:47 | Progress Note-Hospitalist ---
Progress Note HPI/CC on Admission CC: Sepsis with renal abscess HPI: This is a 71-year-old white female clinic patient of Dr Mcdonald PCP in [place], [place] and Dr. Hopson for oncology of B-cell lymphoma who presents to [facility] ER when the [place] ER transferred over for higher level of care due to septic shock. Apparently there is a mass on her kidney likely an abscess from pyelonephritis she is been fluid resuscitated per septic shock protocol placed on empiric antibiotics and is in the mist of management of hypotension that has responded to fluids without pressor therapy required. Patient appears to be very end-stage cancer process so I have consulted palliative care and will review her restricted resuscitation status more clearly because she appears to have high risk for volume overload and pulmonary edema and respiratory failure. Dr. Porras has been consulted for renal abscess so it's questionable whether or not interventional radiology will be required to place drain and we will treat abdominal pain that she has in the meantime with Dilaudid. Progress Notes/Assess & Plan Date Seen 03/25/17 Time Seen by Provider: 11:00 Admission Dx/Process Assessment: Septic shock Pyelonephritis Possible renal abscess MACKENZIE B-cell Lymphoma Obesity Diagonsis/Assessment & Plan Patient had a difficult night last night and she actually fell when getting up to go to the commode with 2-3 person assist Had a long conversation with her who was updated on the major decline in her status and he agrees with DO NOT RESUSCITATE and comfort care protocol Calcium level has increased rapidly now 13.9 calculated for hypoalbuminemia Evidence this is overwhelming lymphoma that has no chance of recovery Dilaudid IT OPERATIONS SPECIALIST will be maintained No fever, vital signs stable, chronically ill, lying supine in bed, appearing end-of-life stage Regular rate and rhythm, clear to auscultation bilaterally but diminished all breath sounds in all sandoval No edema Generalized abdominal pain to palpation Assessment: Septic shock Pyelonephritis Possible renal abscess MACKENZIE B-cell Lymphoma with overwhelming progression rapidly Obesity Severe abdominal pain Severe hypercalcemia due to neoplastic process Plan: Comfort Care protocol Dilaudid IT OPERATIONS SPECIALIST DO NOT RESUSCITATE Provide supportive care at the end of life MOSES ROBERT DO Mar 25, 2017 11:47
[2017-03-25] MEDS ORDERED: HYDROmorphone PF INJECTION 10 MG in NS (IVPB) 50 ML IV PRN ×2 (12:15→15:00)
[2017-03-25 12:21] VITALS: BP 130/63
[2017-03-25] MEDS: LORazepam INJ 2 MG/ML (ATIVAN) VIAL IVP PRN ×2 (14:41→20:30)
--- NOTE | 2017-03-25 15:48 | Progress Note ---
Subjective Date Seen by Provider: Mar 25, 2017 Time Seen by Provider: 07:58 Subjective/Events-last exam No one at bedside. Patient is able is asleep but able to be woke up. She states still with lot of pain in pelvic region. Not having very significant nausea or emesis she states. afebrile. blood cultures no growth. No wbc elevation. Objective Exam Vital Signs Date Time Temp Pulse Resp B/P (MAP) Pulse Ox O2 Delivery O2 Flow Rate FiO2 03/25/17 12:21 98.0 68 12 130/63 (85) 96 Nasal Cannula 2.00 03/25/17 10:57 93 Nasal Cannula 1.00 03/25/17 09:00 Nasal Cannula 2.00 03/25/17 08:12 97.0 79 10 133/76 (95) 97 Nasal Cannula 2.00 03/25/17 07:27 95 Nasal Cannula 1.00 03/25/17 04:00 97.1 87 16 142/65 (90) 96 Nasal Cannula 2.00 03/25/17 03:11 95 Nasal Cannula 2.00 03/25/17 00:00 98.0 86 12 130/61 (84) 94 Nasal Cannula 2.00 03/24/17 22:39 93 Nasal Cannula 2.00 03/24/17 21:24 102 98 40.00 03/24/17 21:14 95 Nasal Cannula 5.00 03/24/17 20:15 Nasal Cannula 2.00 03/24/17 20:00 98.0 73 16 144/67 (92) 94 Nasal Cannula 2.00 03/24/17 16:00 98.0 68 16 126/61 (82) 94 Nasal Cannula 2.00 I & O 03/25/17 07:00 Intake Total 1800 ml Output Total 550 ml Balance 1250 ml Capillary Refill : Less Than 3 Seconds General Appearance: WD/WN, Chronically ill, Mild Distress (due to pelvic pain) , Obese HEENT: PERRL/EOMI, Pharynx Normal Neck: Non Tender Respiratory: Chest Non Tender, No Accessory Muscle Use, No Respiratory Distress , Decreased Breath Sounds Cardiovascular: Regular Rate, Rhythm Gastrointestinal: no pulsatile mass, distended, guarding, tenderness (left side ), No mass Extremity: No Non Tender, No Calf Tenderness, No Pedal Edema Neurologic/Psychiatric: Alert, Oriented x3, No 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-XII, No Abnormal Gait, No Aphasia, Depressed Affect, No Disoriented x3, No EOM Palsy, No Facial Droop, No Motor Weakness, No Sensory Deficit, No Other Skin: Normal Color Lymphatic: No Adenopathy Results Lab Laboratory Tests 03/25/17 06:30: White Blood Count 8.0, Red Blood Count 3.28L, Hemoglobin 9.3L, Hematocrit 31L, Mean Corpuscular Volume 95, Mean Corpuscular Hemoglobin 28, Mean Corpuscular Hemoglobin Concent 30L, Red Cell Distribution Width 15.0H, Platelet Count 275, Mean Platelet Volume 9.2, Neutrophils (%) (Auto) 78H, Lymphocytes (%) (Auto) 9L , Monocytes (%) (Auto) 8, Eosinophils (%) (Auto) 5, Basophils (%) (Auto) 1, Neutrophils # (Auto) 6.2, Lymphocytes # (Auto) 0.7L, Monocytes # (Auto) 0.6, Eosinophils # (Auto) 0.4H, Basophils # (Auto) 0.0, Sodium Level 144, Potassium Level 3.1L, Chloride Level 110H, Carbon Dioxide Level 20L, Anion Gap 14, Blood Urea Nitrogen 18, Creatinine 1.38H, Estimat Glomerular Filtration Rate 38, BUN/ Creatinine Ratio 13, Glucose Level 76, Calcium Level 12.9H, Phosphorus Level 2.6 , Magnesium Level 1.6L 03/25/17 10:43: Sodium Level 142, Potassium Level 3.3L, Chloride Level 109H, Carbon Dioxide Level 22, Anion Gap 11, Blood Urea Nitrogen 18, Creatinine 1.41H, Estimat Glomerular Filtration Rate 37, BUN/Creatinine Ratio 13, Glucose Level 73, Calcium Level 12.9H, Total Bilirubin 0.5, Aspartate Amino Transf (AST/SGOT) 21, Alanine Aminotransferase (ALT/SGPT) 8, Alkaline Phosphatase 78, Total Protein 4.6L, Albumin 2.8L Microbiology 03/22/17 Blood Culture - Preliminary, Resulted No growth 03/22/17 MRSA Screen - Final, Complete MRSA not isolated 03/21/17 Urine Culture - Final, Complete Lactobacillus Species Yeast Species Assessment/Plan Assessment/Plan Assessment/Plan abdominal pain pelvis and left side diffuse large b cell lymphoma I feel this is progression of her lymphoma. Dr. Woods has talked with family and they wish to make her comfort care. I agree with this plan. Please call if needed. Clinical Quality Measures DVT/VTE Risk/Contraindication: Risk Factor Score Per Nursin RFS Level Per Nursing on Admit: 4+=Very High JONATAN ADAMS DO Mar 25, 2017 15:48
[2017-03-26] MEDS: LORazepam INJ 2 MG/ML (ATIVAN) VIAL IVP PRN (02:36)
[2017-03-26] MEDS: NYSTATIN CREAM (MYCOSTATIN) 30 GM TUBE TP SCH ×2 (09:40→16:11)
[2017-03-26] MEDS: DOCUSATE SODIUM 100 MG (COLACE) CAP PO SCH (09:40)
[2017-03-26] MEDS: MICONAZOLE 2% POWDER (DESENEX AF) 90 GM TOP SCH (09:40)
--- NOTE | 2017-03-26 12:26 | Progress Note-Hospitalist ---
Progress Note HPI/CC on Admission CC: Sepsis with renal abscess HPI: This is a 71-year-old white female clinic patient of Dr Mcdonald PCP in [place], [place] and Dr. Hopson for oncology of B-cell lymphoma who presents to [facility] ER when the [place] ER transferred over for higher level of care due to septic shock. Apparently there is a mass on her kidney likely an abscess from pyelonephritis she is been fluid resuscitated per septic shock protocol placed on empiric antibiotics and is in the mist of management of hypotension that has responded to fluids without pressor therapy required. Patient appears to be very end-stage cancer process so I have consulted palliative care and will review her restricted resuscitation status more clearly because she appears to have high risk for volume overload and pulmonary edema and respiratory failure. Dr. Porras has been consulted for renal abscess so it's questionable whether or not interventional radiology will be required to place drain and we will treat abdominal pain that she has in the meantime with Dilaudid. 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
[2017-03-26] MEDS: NS IV 1000 ML 1,000 ML IV SCH (16:11)
--- NOTE | 2017-04-01 12:34 | Discharge Summary-Hospitalist ---
Diagnosis/Chief Complaint Date of Admission Mar 22, 2017 at 01:50 Date of Discharge Mar 26, 2017 at 20:10 Admission Diagnosis Assessment: Septic shock Pyelonephritis Possible renal abscess MACKENZIE B-cell Lymphoma Obesity Discharge Diagnosis Assessment: Septic shock Pyelonephritis Possible renal abscess MACKENZIE B-cell Lymphoma with overwhelming progression rapidly Obesity Severe abdominal pain Severe hypercalcemia due to neoplastic process Plan: Comfort Care protocol Dilaudid SPEECH CORRECTION ASSISTANT DO NOT RESUSCITATE Provide supportive care at the end of life Discharge Summary Discharge Physical Examination Allergies: Coded Allergies: No Known Drug Allergies (Unverified , 08/01/16) Vitals & I&Os Vital Signs Date Time Temp Pulse Resp B/P (MAP) Pulse Ox O2 Delivery O2 Flow Rate FiO2 03/26/17 18:44 12 03/26/17 09:00 Nasal Cannula 1.00 Hospital Course Hospital course: patient had a complicated hospital course after she was admitted from [place], [place] ER due to septic shock presumed urinary source and early abscess of the kidney. Abx and aggressive IVF given while in ICU and DR Porras was consulted along with Oncology who stated if this was infectious we could treat it but if it was lymphoma we had no other treatment to provide. Pt improved enough to be moved to 4 th floor and placed on Dilaudid SPEECH CORRECTION ASSISTANT due to severe pain. As the days ensued she began exhibiting findings of progression of lymphoma and hypercalcemia and in my medical opinion and agreed by Dr Rosario she was at the end stage of her life. Family was updated and all agreed to place on comfort care and she 2 days later after those orders initiated. Labs (last 24 hrs) Microbiology 03/22/17 Blood Culture - Final, Complete No growth 03/22/17 MRSA Screen - Final, Complete MRSA not isolated 03/21/17 Urine Culture - Final, Complete Lactobacillus Species Yeast Species Discharge Home Medications: Active Scripts Active Reported Co Q-10 100 mg Softgel (Ubidecarenone/Vit E Acetate) 1 Each Capsule 1 Cap PO DAILY Turmeric 500 mg Capsule (Turmeric/Turmeric Root Extract) 1 Each Capsule 1 Cap PO DAILY Vitamin C (Ascorbate Calcium) 500 Mg Tablet 500 Mg PO DAILY Daily Multiple Vitamin (Multivitamin) 1 Each Tablet 1 Tab PO DAILY Acetaminophen-Cod #3 Tablet (Acetaminophen with Codeine) 1 Each Tablet 1 Tab PO Q4H PRN Ondansetron HCl 8 Mg Tablet 8 Mg PO TID PRN Pantoprazole Sodium 20 Mg Tablet.dr 20 Mg PO DAILY Lisinopril 10 Mg Tablet 10 Mg PO DAILY Levothyroxine Sodium 137 Mcg Tablet 137 Mcg PO DAILY Doxepin HCl 25 Mg Capsule 25 Mg PO HS Hydrochlorothiazide 25 Mg Tablet 25 Mg PO DAILY Meloxicam 15 Mg Tablet 15 Mg PO DAILY Symbicort 160-4.5 Mcg Inhaler (Budesonide/Formoterol Fumarate) 10.2 Gm Hfa.aer.ad 2 Puff IH BID PRN Instructions to patient/family Please see electronic discharge instructions given to patient. Clinical Quality Measures DVT/VTE Risk/Contraindication: Risk Factor Score Per Nursin RFS Level Per Nursing on Admit: 4+=Very High MOSES ROBERT DO Apr 01, 2017 12:34
== END 2017-03-26 20:10 | disposition expired | DRG 871 ==
LOC: EDUNIT# 23:08 → ER 23:10 → ICU 03-22 01:50 → 4TH 03-23 10:28
PROVIDERS: ADMIT Internal Medicine; ATTEND Internal Medicine
DX: A41.9 Sepsis, unspecified organism (principal); R65.21 Severe sepsis with septic shock; N10 Acute pyelonephritis; N15.1 Renal and perinephric abscess; C83.39 Diffuse large B-cell lymphoma, extranodal and solid organ sites; K85.90 Acute pancreatitis without necrosis or infection, unspecified; Z68.43 Body mass index [BMI] 50.0-59.9, adult; Z66 Do not resuscitate; Z51.5 Encounter for palliative care; N13.6 Pyonephrosis; R18.8 Other ascites; B37.49 Other urogenital candidiasis; E66.01 Morbid (severe) obesity due to excess calories; E03.9 Hypothyroidism, unspecified; J45.909 Unspecified asthma, uncomplicated; I10 Essential (primary) hypertension; K58.9 Irritable bowel syndrome, unspecified; C43.9 Malignant melanoma of skin, unspecified; G47.33 Obstructive sleep apnea (adult) (pediatric); B37.2 Candidiasis of skin and nail; E83.52 Hypercalcemia; M19.91 Primary osteoarthritis, unspecified site; Z96.0 Presence of urogenital implants; Z87.442 Personal history of urinary calculi; Z92.21 Personal history of antineoplastic chemotherapy
CPT/HCPCS: 36415; 71010; 80048; 80053; 80202; 81000; 82150; 83605; 83690; 83735; 84100; 85025; 86141; 87040; 87081; 87088; 93005; 94660; 94760; 96361; 96365; 96375; 96376